=== PATIENT | male | born 1950 | race Caucasian/White ===

== ENCOUNTER → 2017-12-07 | Outpatient (CLI) | payer MEDICARE, OTHER ==
[2017-12-07 08:56] LABS: Basophils # (A) 0.1 k/uL (0-0.2); Basophils % (A) 1 %; Eosinophils # (A) 0.3 k/uL (0-0.7); Eosinophils % (A) 6 %; HCT 40.1 % (39.0-53.0); HGB 12.6 gm/dL (13.0-17.5); Lymphocytes # (A) 2.1 k/uL (1.0-4.8); Lymphocytes % (A) 39 %; MCH 29.2 pg (25.0-35.0); MCHC 31.5 g/dL (31.0-37.0); MCV 92.6 fL (80.0-100.0); Mean Platelet Volume 7.5; Monocytes # (A) 0.3 k/uL (0-1.0); Monocytes % (A) 5 %; Neutrophils # (A) 2.4 k/uL (1.3-7.7); Neutrophils % (A) 46 %; Platelet Count 181 k/uL (150-450); RBC 4.33 m/uL (4.30-5.90); RDW 12.8 % (11.5-15.5); WBC 5.3 k/uL (3.8-10.6)
[2017-12-07 08:57] LABS: Albumin 3.8 g/dL (3.5-5.0); Calcium 8.7 mg/dL (8.4-10.2); Potassium 4.6 mmol/L (3.5-5.1); Total Bilirubin 0.9 mg/dL (0.2-1.3); Total Protein 6.8 g/dL (6.3-8.2)
[2017-12-07 09:10] LABS: T4, Free (Free Thyroxine) 0.73 ng/dL (0.78-2.19)
[2017-12-07 19:44] LABS: Hemoglobin A1C 5.5 % (4.0-6.0)
== END | disposition home or self-care (01) ==
LOC: LABWHC1 08:04
PROVIDERS: ATTEND Family Medicine
DX: Z00.00 Encounter for general adult medical examination without abnormal findings (principal); I10 Essential (primary) hypertension; E55.9 Vitamin D deficiency, unspecified
CPT/HCPCS: 36415; 80053; 80061; 82306; 83036; 84439; 84443; 85025

== ENCOUNTER 2018-01-18 06:53 | Day surgery (SDC) | payer MEDICARE, OTHER ==
[2018-01-13 10:53] VITALS: BMI 23.7
[~2018-01-18 06:53] MED LIST: LACTATED RINGERS 1,000 ML IV SCH
[2018-01-18 07:13] VITALS: TEMP 97.6
[2018-01-18] MEDS ORDERED: PROPOFOL 10 MG/ML 20 ML VIAL IV ONE (07:56)
[2018-01-18] MEDS ORDERED: LIDOCAINE 1% INJ 10MG/ML (20 ML MDV) ONE (07:56)
[2018-01-18] MEDS ORDERED: GLUCAGON 1 MG/ML VIAL ONE (07:56)
--- NOTE | 2018-01-18 07:57 | P.GSHP ---
History of Present Illness H&P Date: 01/18/18 Chief Complaint: Screen colonoscopy This is a 59-year-old male presents today for screening colonoscopy. Patient denies a significant GI complaints. Past Medical History Past Medical History: Asthma, Cancer, Hypertension Additional Past Medical History / Comment(s): HX SKIN CA History of Any Multi-Drug Resistant Organisms: None Reported Past Surgical History: Orthopedic Surgery, Tonsillectomy Additional Past Surgical History / Comment(s): SKIN CA REMOVED, Past Anesthesia/Blood Transfusion Reactions: No Reported Reaction Smoking Status: Never smoker - Past Family History Mother Family Medical History: No Reported History Medications and Allergies Home Medications Medication Instructions Recorded Confirmed Type Nebivolol HCl [Bystolic] 10 mg PO DAILY 03/18/15 01/18/18 History Aspirin [Adult Low Dose Aspirin EC] 81 mg PO DAILY 01/13/18 01/13/18 History Fluticasone/Vilanterol [Breo 1 dose INHALATION DAILY PRN 01/13/18 01/18/18 History Ellipta 100-25 Mcg Inhaler] Multivitamins, Thera [Multivitamin 1 tab PO DAILY 01/13/18 01/13/18 History (formulary)] amLODIPine [Norvasc] 5 mg PO DAILY 01/13/18 01/18/18 History Allergies Allergy/AdvReac Type Severity Reaction Status Date / Time No Known Allergies Allergy Verified 01/13/18 10:48 Surgical - Exam Vital Signs Temp Pulse Resp BP Pulse Ox 97.6 F 56 L 16 149/94 96 01/18/18 07:12 01/18/18 07:12 01/18/18 07:12 01/18/18 07:12 01/18/18 07:12 - General well developed, no distress - Eyes PERRL - ENT normal pinna - Neck no masses - Respiratory normal expansion - Cardiovascular Rhythm: regular - Abdomen Abdomen: soft, non tender Assessment and Plan Assessment: We'll perform screening colonoscopy.
--- NOTE | 2018-01-18 08:25 | P.OP ---
Date of Procedure: 01/18/18 Preoperative Diagnosis: Screening colonoscopy Postoperative Diagnosis: Normal colon Procedure(s) Performed: Colonoscopy Anesthesia: MAC Surgeon: Osmani Valentine Pathology: none sent Condition: stable Disposition: PACU Description of Procedure: PROCEDURE: The patient was placed on the endoscopy table in the lateral position. Digital rectal examination was performed which revealed no abnormalities. The prostate was symmetrical without nodules. Flexible colonoscope was then placed in the patient's anus and passed throughout the entire colon. The ileocecal valve was visualized. The cecum, ascending, transverse, descending and sigmoid colon were normal. The rectum was normal as well. There were no masses, polyps or diverticula noted in the entire colon. SUMMARY OF FINDINGS: Normal colonoscopy.
[2018-01-18 08:43] VITALS: BP 104/74; PULSE 62; RESP 16
== END 2018-01-18 09:00 | disposition home or self-care (01) ==
LOC: ORWHC2ENDO 06:53
PROVIDERS: ATTEND Surgery
DX: Z12.11 Encounter for screening for malignant neoplasm of colon (principal); I10 Essential (primary) hypertension; J45.909 Unspecified asthma, uncomplicated; Z79.82 Long term (current) use of aspirin; Z85.828 Personal history of other malignant neoplasm of skin; Z79.899 Other long term (current) drug therapy
CPT/HCPCS: J1610; J2001; J2704; G0121

== ENCOUNTER 2019-11-17 07:25 | Emergency (ER) | payer MEDICARE, OTHER ==
[2019-11-17 07:37] VITALS: TEMP 98.1
[2019-11-17] MEDS ORDERED: KETOROLAC 15 MG/ML 1 ML VIAL IM STA (07:55)
[2019-11-17 08:36] LABS: Appearance,Urine Clear (Clear); Bilirubin,Urine Negative (Negative); Blood,Urine Negative (Negative); Color,Urine Yellow; Glucose,Urine (UA) Negative (Negative); Ketones,Urine Negative (Negative); Leukocyte Esterase,Urine Negative (Negative); Nitrite,Urine Negative (Negative); Protein,Urine Negative (Negative); Specific Gravity,Urine 1.016 (1.001-1.035); Urobilinogen,Urine <2.0 mg/dL (<2.0)
--- NOTE | 2019-11-17 08:45 | XR ---
EXAMINATION TYPE: PA chest and left rib series DATE OF EXAM: 11/17/2019 Comparison: Chest 10/10/2011 Clinical History: fall, pain TECHNIQUE: 5 views Findings: Heart upper limits of normal in size. Mild tortuosity of the thoracic aorta. Some strandy atelectasis in the right mid lung and left base. No consolidation or pleural effusion. No pneumothorax. No displaced left rib fracture seen. Impression: No acute cardiopulmonary process. No displaced left rib fracture seen.
--- NOTE | 2019-11-17 08:47 | ED ---
Back Pain HPI - General Chief Complaint: Back Pain/Injury Stated Complaint: back pain Time Seen by Provider: 11/17/19 07:40 Source: patient Limitations: no limitations - History of Present Illness Initial Comments: Patient is a 68-year-old male presenting to emergency Department with complaints of left-sided thoracic pain after he fell yesterday. Patient states he was on a porch swing when the chain broke and the swing fell down and he fell backwards. Patient states he did scratch his head but did not hit his head hard. He denies any headache. He denies being on blood thinners. There was no loss of consciousness. Patient's main complaint is left-sided thoracic pain. He believes the left side of his back hit either the armrest of the back of the swing when it fell. He is concerned that he fractured something. He does have sharp pains with certain movements. He had a hard time sleeping last night secondary to the pain. He states he did try an aspirin with no relief as well as an old [place]. Patient states he thinks he had about an hour of relief from that pain medicine. She denies any numbness and tingling into his lower extremities, he denies any bowel or bladder incontinence. He denies any saddle paresthesias. He denies any hematuria. He has no further complaints at this time. Upon arrival to the ER, his vital signs are stable. - Related Data Home Medications Medication Instructions Recorded Confirmed Nebivolol HCl [Bystolic] 10 mg PO DAILY 03/18/15 01/18/18 Aspirin [Adult Low Dose Aspirin EC] 81 mg PO DAILY 01/13/18 01/13/18 Fluticasone/Vilanterol [Breo 1 dose INHALATION DAILY PRN 01/13/18 01/18/18 Ellipta 100-25 Mcg Inhaler] Multivitamins, Thera [Multivitamin 1 tab PO DAILY 01/13/18 01/13/18 (formulary)] amLODIPine [Norvasc] 5 mg PO DAILY 01/13/18 01/18/18 Allergies Allergy/AdvReac Type Severity Reaction Status Date / Time No Known Allergies Allergy Verified 11/17/19 07:37 Review of Systems ROS Statement: Those systems with pertinent positive or pertinent negative responses have been documented in the HPI. ROS Other: All systems not noted in ROS Statement are negative. Past Medical History Past Medical History: Asthma, Cancer, Hypertension Additional Past Medical History / Comment(s): HX SKIN CA History of Any Multi-Drug Resistant Organisms: None Reported Past Surgical History: Orthopedic Surgery, Tonsillectomy Additional Past Surgical History / Comment(s): SKIN CA REMOVED, Past Anesthesia/Blood Transfusion Reactions: No Reported Reaction Past Psychological History: No Psychological Hx Reported Smoking Status: Never smoker Past Alcohol Use History: Occasional Past Drug Use History: None Reported - Past Family History Mother Family Medical History: No Reported History General Exam - General Exam Comments Initial Comments: GENERAL: Patient is well-developed and well-nourished. Patient is nontoxic and in no acute distress. HEAD: Atraumatic, normocephalic. EYES: Pupils equal round and reactive to light, extraocular movements intact, sclera anicteric, conjunctiva are normal. Eyelids were unremarkable. ENT: TMs normal, nares patent, oropharynx clear without exudates. Moist mucous membranes. NECK: Normal range of motion, supple without lymphadenopathy or JVD. LUNGS: Unlabored respirations. Breath sounds clear to auscultation bilaterally and equal. No wheezes rales or rhonchi. HEART: Regular rate and rhythm without murmurs, rubs or gallops. ABDOMEN: Soft, nontender, normoactive bowel sounds. No guarding, no rebound. No masses appreciated. : Deferred MUSCULOSKELETAL: Normal extremities with adequate strength and normal range of motion, no pitting or edema. No clubbing or cyanosis. Pain with palpation of the left thoracic area, there is a mild bruise present in this area. No pain in the lumbar area. NEUROLOGICAL: Patient is alert and oriented x 3. Motor and sensory are also intact. Cranial nerves II through XII grossly intact. Symmetrical smile. Normal speech, normal gait. PSYCH: Normal mood, normal affect. SKIN: Warm, Dry, normal turgor, no rashes or lesions noted. Limitations: no limitations Course Vital Signs 11/17/19 11/17/19 07:34 09:09 Temperature 98.1 F Pulse Rate 56 L 55 L Respiratory 18 14 Rate Blood Pressure 149/99 138/87 O2 Sat by Pulse 97 98 Oximetry Medical Decision Making - Medical Decision Making Patient is a 68-year-old male here after falling down on a porch swing, presenting with left-sided thoracic pain. Vitals are stable. He has no red flag symptoms, no neuro deficits. He has pain with palpation on the left thoracic area, into the left side of the ribs. Urine shows no evidence of hematuria, is normal. X-rays of the thoracic spine and left ribs show no acute fractures. Patient was given Toradol the ER. He is resting completely. I discussed with patient this is most likely a contusion. I recommended heat and/or ice to the area may alternate between the two. I also recommended ibuprofen 600 for discomfort. Patient's states she has this at home. He is stable for discharge. He will follow up with PCP. Return parameters were discussed with the patient and he verbalized understanding. Case discussed with Dr. Jimenez. - Lab Data Lab Results 11/17/19 Range/Units 08:04 Urine Color Yellow Urine Appearance Clear (Clear) Urine pH 6.0 (5.0-8.0) Ur Specific [place] 1.016 (1.001-1.035) Urine Protein Negative (Negative) Urine Glucose (UA) Negative (Negative) Urine Ketones Negative (Negative) Urine Blood Negative (Negative) Urine Nitrite Negative (Negative) Urine Bilirubin Negative (Negative) Urine Urobilinogen <2.0 (<2.0) mg/dL Ur Leukocyte Esterase Negative (Negative) Disposition Clinical Impression: Contusion of rib on left side, Thoracic back pain Disposition: HOME SELF-CARE Condition: Stable Instructions (If sedation given, give patient instructions): Rib Contusion (ED) Additional Instructions: Please return to the Emergency Department if symptoms worsen or any other concerns. Recommend heat and/or ice to the area, may alternate between the two. Recommend ibuprofen for discomfort. Follow-up with PCP if symptoms persist. Is patient prescribed a controlled substance at d/c from ED?: No Referrals: Adryan Gardiner DO [Primary Care Provider] - 1-2 days
--- NOTE | 2019-11-17 08:47 | XR ---
EXAMINATION TYPE: XR thoracic spine 2V DATE OF EXAM: 11/17/2019 COMPARISON: NONE HISTORY: 68-year-old male fall and pain TECHNIQUE: 3 views FINDINGS: There is a rightward truncal shift. 12 rib-bearing thoracic vertebral bodies. All pedicles are visual ized. Moderate endplate spondylosis mid to lower thoracic spine. Vertebral body heights are preserved and alignment is maintained. IMPRESSION: 1. Rightward truncal shift could be positional or due to muscle spasm. 2. Moderate endplate spondylosis mid to lower thoracic spine. No vertebral compression collapse or ma lalignment seen.
[2019-11-17 09:12] VITALS: BP 138/87; PULSE 55; RESP 14
== END 2019-11-17 09:12 | disposition home or self-care (01) ==
LOC: EC 07:25
DX: S20.212A Contusion of left front wall of thorax, initial encounter (principal); M54.6 Pain in thoracic spine; J45.909 Unspecified asthma, uncomplicated; I10 Essential (primary) hypertension; Z79.51 Long term (current) use of inhaled steroids; Z79.899 Other long term (current) drug therapy; Z98.890 Other specified postprocedural states; Z85.828 Personal history of other malignant neoplasm of skin; W09.1XXA Fall from playground swing, initial encounter
CPT/HCPCS: 81003; 71101; 72070; 96372; 99283; J1885

== ENCOUNTER 2021-06-08 09:28 | Emergency (ER) | payer MEDICARE, OTHER ==
[2021-06-08 09:32] VITALS: BP 153/93; PULSE 68; RESP 20; TEMP 97.7
--- NOTE | 2021-06-08 09:43 | ED ---
General Adult HPI - General Chief complaint: ENT Stated complaint: skin/nose problem Time Seen by Provider: 06/08/21 09:32 Source: patient, RN notes reviewed Mode of arrival: ambulatory Limitations: no limitations - History of Present Illness Initial comments: This a 70-year-old male presents emergency Department chief complaint of a rash, redness and swelling to his nose. Patient states his started Wednesday with a small area has greatly worsened. Patient denies any fevers or chills no difficulty breathing states her some swelling underneath his eyes. Patient denies any known trauma denies any new products or putting anything in his nose. Patient states that he has had priorsurgery for skin cancer. Patient denies fevers or chills. - Related Data Home Medications Medication Instructions Recorded Confirmed Nebivolol HCl [Bystolic] 10 mg PO DAILY 03/18/15 01/18/18 Aspirin [Adult Low Dose Aspirin EC] 81 mg PO DAILY 01/13/18 01/13/18 Fluticasone/Vilanterol [Breo 1 dose INHALATION DAILY PRN 01/13/18 01/18/18 Ellipta 100-25 Mcg Inhaler] Multivitamins, Thera [Multivitamin 1 tab PO DAILY 01/13/18 01/13/18 (formulary)] amLODIPine [Norvasc] 5 mg PO DAILY 01/13/18 01/18/18 Previous Rx's Medication Instructions Recorded Cephalexin [Keflex] 500 mg PO Q6HR #40 cap 06/08/21 Allergies Allergy/AdvReac Type Severity Reaction Status Date / Time No Known Allergies Allergy Verified 06/08/21 09:32 Review of Systems ROS Statement: Those systems with pertinent positive or pertinent negative responses have been documented in the HPI. ROS Other: All systems not noted in ROS Statement are negative. Past Medical History Past Medical History: Asthma, Cancer, Hypertension Additional Past Medical History / Comment(s): HX SKIN CA History of Any Multi-Drug Resistant Organisms: None Reported Past Surgical History: Orthopedic Surgery, Tonsillectomy Additional Past Surgical History / Comment(s): SKIN CA REMOVED, Past Anesthesia/Blood Transfusion Reactions: No Reported Reaction Past Psychological History: No Psychological Hx Reported Smoking Status: Never smoker Past Alcohol Use History: Occasional Past Drug Use History: None Reported - Past Family History Mother Family Medical History: No Reported History General Exam Limitations: no limitations General appearance: alert, in no apparent distress Head exam: Present: atraumatic, normocephalic, normal inspection Eye exam: Present: normal appearance, PERRL, EOMI, periorbital swelling (Mild right inferior), other (No pain with ocular movement). Absent: scleral icterus, conjunctival injection, periorbital tenderness ENT exam: Present: normal oropharynx, mucous membranes moist, TM's normal bilaterally, normal external ear exam, other (Erythema and swelling of the nose, mild swelling right periorbital) Neck exam: Present: normal inspection, full ROM. Absent: tenderness, meningismus, lymphadenopathy Respiratory exam: Present: normal lung sounds bilaterally. Absent: respiratory distress, wheezes, rales, rhonchi, stridor Cardiovascular Exam: Present: regular rate, normal rhythm, normal heart sounds. Absent: systolic murmur, diastolic murmur, rubs, gallop, clicks Course Vital Signs 06/08/21 09:29 Temperature 97.7 F Pulse Rate 68 Respiratory 20 Rate Blood Pressure 153/93 O2 Sat by Pulse 97 Oximetry Medical Decision Making - Medical Decision Making Patient appears to have cellulitis of his nose, facial region. This was on alleviated with Benadryl and less likely to be ALLERGIC. Patient we discharged on oral antibiotics with close follow-up, return parameters were discussed Disposition Clinical Impression: Cellulitis of nose Disposition: HOME SELF-CARE Condition: Stable Instructions (If sedation given, give patient instructions): Cellulitis (ED) Additional Instructions: Please return to the Emergency Department if symptoms worsen or any other concerns. Prescriptions: Cephalexin [Keflex] 500 mg PO Q6HR #40 cap Is patient prescribed a controlled substance at d/c from ED?: No Referrals: Adryan Gardiner DO [Primary Care Provider] - 1-2 days Time of Disposition: 09:42
== END 2021-06-08 09:44 | disposition home or self-care (01) ==
LOC: EC 09:28
DX: J34.0 Abscess, furuncle and carbuncle of nose (principal); J45.909 Unspecified asthma, uncomplicated; I10 Essential (primary) hypertension; Z79.82 Long term (current) use of aspirin; Z85.828 Personal history of other malignant neoplasm of skin
CPT/HCPCS: 99282

== ENCOUNTER → 2022-08-17 | Outpatient (CLI) | payer MEDICARE, OTHER ==
[2022-08-17 11:03] LABS: African American GFR (CKD) 63.2 (60.0-200.0); Anion Gap 7.7 mmol/L (10.00-18.00); Carbon Dioxide 28.3 mmol/L (20.0-27.5); Non-African American GFR(CKD) 54.5 (60.0-200.0); Potassium 4.2 mmol/L (3.5-5.5)
[2022-08-17 11:22] LABS: HCT 42.3 % (39.6-50.0); HGB 13.7 g/dL (13.0-17.0); MCH 29.7 pg (27.0-32.0); MCHC 32.4 g/dL (32.0-37.0); MCV 91.6 fL (80.0-97.0); Mean Platelet Volume 10.7 fL (9.5-12.2); NRBC Per 100 WBC 0 /100 WBCS (0.0-0.0); Platelet Count 182 X 10*3/uL (140-440); RBC 4.62 X 10*6/uL (4.40-5.60); RDW 12.9 % (11.5-14.5); WBC 6.95 X 10*3/uL (4.50-10.00)
== END | disposition home or self-care (01) ==
LOC: LABPAT 07:09
PROVIDERS: ATTEND Internal Medicine Interventional Cardiology
DX: Z01.812 Encounter for preprocedural laboratory examination (principal); R94.39 Abnormal result of other cardiovascular function study
CPT/HCPCS: 80051; 82565; 84520; 85027

== ENCOUNTER 2022-08-20 06:56 | Day surgery (SDC) | payer MEDICARE, OTHER ==
[2022-08-17 15:33] VITALS: BMI 23.1
[~2022-08-20 06:56] MED LIST changes: +ALPRAZolam 0.25 MG TAB PO PRN; +ALPRAZolam 0.5 MG TAB PO PRN; +ASPIRIN 325 MG TAB PO STA; +ATORVASTATIN 80 MG TAB PO STA; -LACTATED RINGERS 1,000 ML IV SCH; +NITROGLYCERIN SL TABS 0.4 MG TAB SUBLINGUAL PRN; +SODIUM CHLORIDE 0.9% 1,000 ML in EMPTY BAG 1 BAG IV ONE
[2022-08-20] MEDS ORDERED: HEPARIN SODIUM,PORCINE 10,000 UNIT in SODIUM CHLORIDE 0.9% 1,000 ML IRRIGATION PRN (07:00)
[2022-08-20] MEDS ORDERED: HEPARIN SODIUM,PORCINE 2,500 UNIT in SODIUM CHLORIDE 0.9% 250 ML IRRIGATION PRN (07:00)
[2022-08-20] MEDS ORDERED: SODIUM CHLORIDE 0.9% 1,000 ML IV ONE (07:04)
[2022-08-20 07:22] VITALS: RESP 16; TEMP 96.9
[2022-08-20] MEDS ORDERED: VERAPAMIL 2.5 MG/ML 2 ML AMP ONE (08:46)
[2022-08-20] MEDS ORDERED: HEPARIN SODIUM 1,000 UN/ML (10ML VL) ONE (08:46)
[2022-08-20] MEDS ORDERED: MIDAZOLAM 2 MG/2 ML VIAL IV ONE (09:09)
[2022-08-20] MEDS ORDERED: LIDOCAINE 1% INJ 10MG/ML (5 ML VIAL-PF) SQ ONE (09:09)
[2022-08-20] MEDS: HEPARIN SODIUM 1,000 UN/ML (10ML VL) IV ONE ×2 (09:15→09:27)
[2022-08-20] MEDS ORDERED: VERAPAMIL SYRINGE (5 MG/10 ML) INTRAARTER ONE (09:16)
[2022-08-20] MEDS ORDERED: HYDROmorphone 0.5 MG/0.5 ML SYRINGE IVP ONE (09:35)
[2022-08-20] MEDS ORDERED: CLOPIDOGREL 75 MG TAB ONE (09:42)
[2022-08-20] MEDS ORDERED: IOPAMIDOL-370 100ML BTL INJ ONE (09:42)
[2022-08-20] MEDS ORDERED: CLOPIDOGREL 75 MG TAB PO ONE (09:45)
[2022-08-20] MEDS ORDERED: IOPAMIDOL-300 100ML BTL INJ ONE (09:47)
[2022-08-20] MEDS ORDERED: NITROGLYCERIN 1000MCG/10ML SYRINGE INTRACORON ONE (09:48)
[2022-08-20 15:22] VITALS: BP 131/76; PULSE 56
--- NOTE | 2022-08-20 15:32 | CC ---
CARDIAC CATHETERIZATION REPORT DATE OF SERVICE: 08/20/2022. PROCEDURES PERFORMED: 1. Left heart catheterization and coronary angiography. 2. Percutaneous transluminal coronary angioplasty and stenting of ramus intermedius with a drug-eluting stent. PERFORMED BY: Dr. Luis Wong. ANESTHESIA: Moderate conscious sedation time was 40 minutes. The patient was administered Versed. Oxygen saturation, hemodynamics, and EKG were monitored closely. CLINICAL INFORMATION: Mr. Carlos Cornejo is a 71-year-old gentleman with a history of paroxysmal atrial fibrillation with a loop recorder, also has a history of syncope, had a recent stress test which revealed an exertional decrease in ejection fraction with a reversibility in the lateral wall. He was advised cardiac catheterization given the abnormality. Risks, benefits, options, and rationale were explained to the patient and . PROCEDURE NOTE: Under local anesthesia and strict aseptic precautions, a 6-[place] introducer was placed in the right radial artery. Using JL3.5 and JR4 catheters, I performed coronary angiography and also checked LV pressures but did not perform an LV-gram. I noted that there was a significant 80% to 90% lesion involving the ramus intermedius, and I proceeded to perform intervention in the same setting. Following the PCI procedure, the sheath was taken out, and Vasc Band was applied as per protocol. Saturation in the fingers of the right hand was 96%. The patient received a total of 7000 units of heparin, and his ACT was 273. He also received 600 mg of Plavix, and he will be on a combination of Eliquis and Plavix without interruption for 1 year. CARDIAC CATHETERIZATION FINDINGS: The left ventricular end-diastolic pressure was about 12 mmHg without any gradient across aortic valve. CORONARY ANGIOGRAPHY FINDINGS: RIGHT CORONARY ARTERY: Dominant vessel. No significant disease. Has about a 30% mid lesion. Bifurcates into large PDA and PLV, both of which supply a sizable amount of myocardium. This is a superdominant RCA. No significant disease other than 35% mid lesion. LEFT MAIN CORONARY ARTERY: Short, patent vessel, free of significant disease that trifurcates into LAD, ramus, and circumflex. Left main itself is free of significant disease. LEFT ANTERIOR DESCENDING CORONARY ARTERY: Good-caliber vessel, gives off a good-sized diagonal branch that subdivides into smaller septal branches, runs all the way to the apex, has minor irregularities of no more than 35%. There is mild diffuse calcification in the LAD, but no more than 35% narrowing. Diagonal also has minor irregularities, no significant disease. RAMUS INTERMEDIUS: This is a good-caliber vessel. In the midportion, there is an eccentric 80% to 90% stenosis, after which, the caliber improves, and vessel runs all the way towards the apex or apical lateral wall supplying a sizable amount of myocardium. Fair-caliber vessel, 80% to 90% mid lesion which is quite significant in multiple views. LEFT POSTERIOR CIRCUMFLEX CORONARY ARTERY: Small nondominant vessel, runs in the AV groove, gives off a posterolateral branch and a small left atrial circumflex branch. Has minor irregularities. No significant disease. FINAL IMPRESSION: This patient has a right-dominant system with a 35% mid right coronary artery disease, superdominant right coronary artery. Normal filling pressures. No gradient. Left main, circumflex, and left anterior descending have minor irregularities. Ramus has an 85% to 90% lesion in the midportion. Left ventriculogram was not performed. RECOMMENDATIONS: I recommended PCI of ramus and performed this in the same setting. PCI PROCEDURE DETAILS: I used a 3.5 left Romeo-type guide catheter of 6-[place] caliber to cannulate the left coronary artery. A Runthrough wire was used to cross the lesion in the ramus. A 2.25 caliber 15 mm NC Trek balloon was used to pre-dilate the lesion. I then deployed an 18 mm long 2.5-caliber Xience stent. Excellent angiographic result was achieved. Angiographically, the expansion was excellent. The patient had very mild chest discomfort. No new EKG changes. Excellent angiographic result without complication was achieved. The final angiograms were reviewed. The sheath was taken out, and Vasc Band was applied as per protocol with saturation in the fingers of the right hand of about 96%. The patient tolerated the procedure well without complications. Excellent angiographic result was achieved. I expect he will be discharged later on today and will follow up with me next week. MMODL / IJN: [id number] /
== END 2022-08-20 17:14 | disposition home or self-care (01) ==
LOC: CATHCVL 06:56
PROVIDERS: ATTEND Internal Medicine Interventional Cardiology
DX: I48.0 Paroxysmal atrial fibrillation (principal); I10 Essential (primary) hypertension; Z79.01 Long term (current) use of anticoagulants; Z79.899 Other long term (current) drug therapy
CPT/HCPCS: 93458; C9600; C1887; C1769 ×2; C1894; C1874; C1725; J2250; J2001; J1644; J1170; Q9967 ×2

== ENCOUNTER → 2022-10-07 | Outpatient (CLI) | payer MEDICARE, OTHER ==
[2022-10-07 15:35] LABS: Basophils # (A) 0.08 X 10*3/uL (0.00-0.10); Basophils % (A) 1.5 %; Eosinophils % (A) 5.5 %; HCT 36.2 % (39.6-50.0); HGB 11.5 d/dL (12.0-15.0); Lymphocytes # (A) 2.11 X 10*3/uL (0.90-5.00); Lymphocytes % (A) 38.5 %; MCH 29.8 pg (27.0-32.0); MCHC 31.8 d/dL (32.0-37.0); MCV 93.8 FL (80.0-97.0); Mean Platelet Volume 11.1 FL (9.5-12.2); Monocytes # (A) 0.46 X 10*3/uL (0.20-1.00); Monocytes % (A) 8.4 %; NRBC Per 100 WBC 0 X 10*3/uL (0.00-0.01); Neutrophils # (A) 2.52 X 10*3/uL (1.80-7.70); Neutrophils % (A) 45.9 %; Platelet Count 169 X 10*3/uL (140-440); RBC 3.86 X 10*6/uL (4.40-5.60); RDW 13.4 % (11.5-14.5); WBC 5.48 X 10*3/uL (4.50-10.00)
[2022-10-07 16:24] LABS: ALT 120 U/L (10-49); AST 81 U/L (14-35); Albumin 4.2 d/dL (3.8-4.9); Albumin/Globulin Ratio 1.91 Ratio (1.60-3.17); Alkaline Phosphatase 87 U/L (41-126); Blood Urea Nitrogen 12.6 mg/dL (9.0-27.0); Calcium 8.8 mg/dL (8.7-10.3); Carbon Dioxide 25.3 mmol/L (21.6-31.8); Chloride 109 mmol/L (96-109); Chol/HDL Ratio 1.56 Ratio; Globulin 2.2 d/dL (1.6-3.3); Glucose 100 mg/dL (70-110); LDL Cholesterol,Calculated 17.4 mg/dL (0.0-131.0); Potassium 4.3 mmol/L (3.5-5.5); Sodium 145 mmol/L (135-145); T4, Free (Free Thyroxine) 1.21 ng/dL (0.80-1.80); Total Bilirubin 1.8 mg/dL (0.3-1.2); Total Protein 6.4 d/dL (6.2-8.2); VLDL Calculation 13.72 mg/dL (5.00-40.00)
== END | disposition home or self-care (01) ==
LOC: LABWHC1 09:36
PROVIDERS: ATTEND Family Medicine
DX: Z00.00 Encounter for general adult medical examination without abnormal findings (principal); Z12.5 Encounter for screening for malignant neoplasm of prostate; I10 Essential (primary) hypertension; E03.9 Hypothyroidism, unspecified; E55.9 Vitamin D deficiency, unspecified
CPT/HCPCS: 36415; 80053; 80061; 82306; 83036; 84153; 84439; 84443; 85025

== ENCOUNTER 2023-10-24 00:18 | Inpatient (IN) | payer MEDICARE, OTHER ==
--- NOTE | 2023-10-24 00:32 | ED ---
Fever HPI - General Stated Complaint: NV Time Seen by Provider: 10/24/23 00:30 Source: RN notes reviewed, old records reviewed, Caregiver Mode of arrival: EMS Limitations: no limitations - History of Present Illness Initial Comments: This is a 72-year-old male with near syncopal event found to have fever of recent long trip. Patient did recently go on a long travel, concerned that he is to too much of himself is doing too much activity taking care of himself not drinking eating well patient does have fever MD Complaint: fever, malaise, weakness -: days(s) Temperature Source: subjective Context: sick contacts, multiple patients with similar symptoms Associated Symptoms: chills, myalgias Treatments Prior to Arrival: none - Related Data Home Medications Medication Instructions Recorded Confirmed Vitamin B Complex 1 cap PO DAILY 05/12/22 10/24/23 Cholecalciferol [Vitamin D3 (25 25 mcg PO DAILY 08/17/22 10/24/23 Mcg = 1000 Iu)] Clopidogrel [Plavix] 75 mg PO DAILY 08/20/22 10/24/23 Ascorbic Acid [Vitamin C] 500 mg PO DAILY 10/24/23 10/24/23 Atorvastatin [Lipitor] 40 mg PO HS 10/24/23 10/24/23 Calcium/Magnesium/Zinc 1 tab PO DAILY 10/24/23 10/24/23 Levothyroxine Sodium [Synthroid] 50 mcg PO AC-BRKFST 10/24/23 10/24/23 Multivit-Mins/Iron/Folic/Lycop 1 tab PO DAILY 10/24/23 10/24/23 [Centrum Men's Tablet] Pantoprazole [Protonix] 40 mg PO DAILY 10/24/23 10/24/23 Sildenafil Citrate 100 mg PO Q72H PRN 10/24/23 10/24/23 Previous Rx's Medication Instructions Recorded Apixaban [Eliquis] 5 mg PO BID #60 tab 05/14/22 Acetaminophen Tab [Tylenol] 650 mg PO Q6HR PRN tab 10/26/23 cefUROXime axetiL [Ceftin] 500 mg PO BID 10 Days #20 tab 10/26/23 Allergies Allergy/AdvReac Type Severity Reaction Status Date / Time No Known Allergies Allergy Verified 10/24/23 08:59 Review of Systems ROS Statement: Those systems with pertinent positive or pertinent negative responses have been documented in the HPI. ROS Other: All systems not noted in ROS Statement are negative. Past Medical History Past Medical History: Asthma, Cancer, Hypertension Additional Past Medical History / Comment(s): HX SKIN CA History of Any Multi-Drug Resistant Organisms: None Reported Past Surgical History: Orthopedic Surgery, Tonsillectomy Additional Past Surgical History / Comment(s): SKIN CA REMOVED, Past Anesthesia/Blood Transfusion Reactions: No Reported Reaction Smoking Status: Never smoker - Past Family History Mother Family Medical History: No Reported History General Exam General appearance: alert, in no apparent distress Head exam: Present: atraumatic, normocephalic, normal inspection Eye exam: Present: normal appearance, PERRL, EOMI. Absent: scleral icterus, conjunctival injection, periorbital swelling ENT exam: Present: normal exam, mucous membranes moist Neck exam: Present: normal inspection. Absent: tenderness, meningismus, lymph adenopathy Respiratory exam: Present: normal lung sounds bilaterally. Absent: respiratory distress, wheezes, rales, rhonchi, stridor Cardiovascular Exam: Present: regular rate, normal rhythm, normal heart sounds. Absent: systolic murmur, diastolic murmur, rubs, gallop, clicks GI/Abdominal exam: Present: soft, normal bowel sounds. Absent: distended, tenderness, guarding, rebound, rigid Extremities exam: Present: normal inspection, full ROM, normal capillary refill. Absent: tenderness, pedal edema, joint swelling, calf tenderness Back exam: Present: normal inspection Neurological exam: Present: alert, oriented X3, CN II-XII intact Psychiatric exam: Present: normal affect, normal mood Skin exam: Present: warm, dry, intact, normal color. Absent: rash Course Vital Signs 10/24/23 10/24/23 10/24/23 00:26 02:03 03:41 Temperature 101.7 F H 98.4 F Pulse Rate 91 90 80 Respiratory 20 18 20 Rate Blood Pressure 132/77 125/80 96/68 O2 Sat by Pulse 94 L 93 L 95 Oximetry 10/24/23 10/24/23 10/24/23 04:37 05:54 06:57 Temperature 97.5 F L Pulse Rate 72 65 121 H Respiratory 18 20 16 Rate Blood Pressure 97/69 98/71 83/57 O2 Sat by Pulse 94 L 94 L 95 Oximetry 10/24/23 10/24/23 10/24/23 07:00 07:15 07:30 Temperature Pulse Rate 99 122 H 85 Respiratory 18 22 18 Rate Blood Pressure 85/61 77/52 78/60 O2 Sat by Pulse 94 L 94 L 98 Oximetry 10/24/23 10/24/23 10/24/23 08:00 08:30 09:00 Temperature Pulse Rate 82 116 H 87 Respiratory 18 18 18 Rate Blood Pressure 81/65 94/71 101/84 O2 Sat by Pulse 99 98 96 Oximetry 10/24/23 10/24/23 10/24/23 09:30 10:00 10:30 Temperature Pulse Rate 57 L 55 L Respiratory 18 18 17 Rate Blood Pressure 96/76 104/82 76/53 O2 Sat by Pulse 96 98 99 Oximetry 10/24/23 10/24/23 10/24/23 11:00 11:30 11:36 Temperature Pulse Rate 61 55 L 56 L Respiratory 19 19 18 Rate Blood Pressure 80/54 79/52 74/54 O2 Sat by Pulse 96 100 98 Oximetry 10/24/23 10/24/23 10/24/23 11:47 12:00 12:09 Temperature Pulse Rate 59 L 60 59 L Respiratory 18 17 18 Rate Blood Pressure 93/72 93/72 103/75 O2 Sat by Pulse 98 98 98 Oximetry 10/24/23 10/24/23 12:27 13:00 Temperature Pulse Rate 56 L 59 L Respiratory 18 18 Rate Blood Pressure 101/78 96/62 O2 Sat by Pulse 98 98 Oximetry - Reevaluation(s) Reevaluation #1: 10/24/23 03:57 Medical records reviewed Reevaluation #2: 10/24/23 03:57 Patient symptoms improving Reevaluation #3: 10/24/23 03:57 Patient informed of results questions answered Reevaluation #4: 10/24/23 03:57 Was pt. sent in by a medical professional or institution (, PA, GERIATRIC AIDE, urgent care, hospital, or [facility]...) When possible be specific @ -no Did you speak to anyone other than the patient for history (EMS, parent, family, police, friend...)? What history was obtained from this source @ -no Did you review nursing and triage notes (agree or disagree)? Why? @ -agree Are old charts reviewed (outside hosp., previous admission, EMS record, old EKG, old radiological studies, urgent care reports/EKG's, [facility] records)? Report findings @ -yes Differential Diagnosis (chest pain, altered mental status, abdominal pain women, abdominal pain men, vaginal bleeding, weakness, fever, dyspnea, syncope, headache, dizziness, GI bleed, back pain, seizure, CVA, palpatations, mental health, musculoskeletal)? @ -prior EKG interpreted by me (3pts min.). @ -yes X-rays interpreted by me (1pt min.). @ -yes negative for acute disease CT interpreted by me (1pt min.). @ -no U/S interpreted by me (1pt. min.). @ -no What testing was considered but not performed or refused? (CT, X-rays, U/S, labs)? Why? @ -none What meds were considered but not given or refused? Why? @ -none Did you discuss the management of the patient with other professionals (professionals i.e. , PA, GERIATRIC AIDE, lab, RT, psych nurse, foster care social worker, paint line operator, teacher, aviation safety officer, window caser)? Give summary @ -no Was smoking cessation discussed for >3mins.? @ -no Was critical care preformed (if so, how long)? @ -yes31 Were there social determinants of health that impacted care today? How? (Homelessness, low income, unemployed, alcoholism, drug addiction, transportation, low edu. Level, literacy, decrease access to med. care, alf, rehab)? @ -none Was there de-escalation of care discussed even if they declined (Discuss DNR or withdrawal of care, Hospice)? DNR status @ -no What co-morbidities impacted this encounter? (DM, HTN, Smoking, COPD, CAD, Cancer, CVA, ARF, Chemo, Hep., AIDS, mental health diagnosis, sleep apnea, morbid obesity)? @ -none Was patient admitted / discharged? Hospital course, mention meds given and route, prescriptions, significant lab abnormalities, going to OR and other pertinent info. @ - 72 male for fever, patient feels well here in the ER much improved and can be discharged home patient is found to not be in atrial fibrillation with RVR soft blood pressures will start on antibiotics, patient will await blood cultures for bacteremia and patient can be given continued fluid resuscitation here in the ER Admitted Undiagnosed new problem with uncertain prognosis? @ -no Drug Therapy requiring intensive monitoring for toxicity (Heparin, Nitro, Ins ulin, Cardizem)? @ -no Were any procedures done? @ -no Diagnosis/symptom? @ -Fever A-fib with RVR Acute, or Chronic, or Acute on Chronic? @ -Acute Uncomplicated (without systemic symptoms) or Complicated (systemic symptoms)? @ -Complicated Side effects of treatment? @ -no Exacerbation, Progression, or Severe Exacerbation? @ -exacerbation Poses a threat to life or bodily function? How? (Chest pain, USA, PA, pneumonia, PE, COPD, DKA, ARF, appy, cholecystitis, CVA, Diverticulitis, Homicidal, Suicidal, threat to staff... and all critical care pts) @ -yes arrhythmia and fever Reevaluation #5: Differential Fever: Pneumonia, viral URI, endocarditis, myocarditis, pericarditis, otitis, sinusitis, peritonsillar Abscess, retropharyngeal Abscess, epiglottitis, perito nitis, appendicitis, [place] cystitis, diverticulitis, hepatitis, colitis, UTI, PID, TOA, pyelonephritis, prostatitis, epididymitis, meningitis, encephalitis, pulmonary embolism, CVA, thyroid storm, pancreatitis, adrenal crisis, cavernous sinus thrombosis, this is not meant to be an all-inclusive list. - Consultations Consultation #1: Spoke with Dr. NAIR who agrees to admit this patient Medical Decision Making - Medical Decision Making 72 male for fever, patient feels well here in the ER much improved and can be discharged home patient is found to not be in atrial fibrillation with RVR soft blood pressures will start on antibiotics, patient will await blood cultures for bacteremia and patient can be given continued fluid resuscitation here in the ER - Lab Data Result diagrams: 10/26/23 07:26 10/26/23 07:26 Lab Results 10/24/23 10/24/23 10/24/23 Range/Units 01:06 01:06 01:06 WBC 3.9 (3.8-10.6) k/uL RBC 3.69 L (4.30-5.90) m/uL Hgb 11.4 L (13.0-17.5) gm/dL Hct 33.5 L (39.0-53.0) % MCV 90.9 (80.0-100.0) fL MCH 30.8 (25.0-35.0) pg MCHC 33.9 (31.0-37.0) g/dL RDW 13.1 (11.5-15.5) % Plt Count 161 (150-450) k/uL MPV 8.3 Neutrophils % 56 % Lymphocytes % 39 % Monocytes % 2 % Eosinophils % 1 % Basophils % 0 % Neutrophils # 2.2 (1.3-7.7) k/uL Lymphocytes # 1.5 (1.0-4.8) k/uL Monocytes # 0.1 (0-1.0) k/uL Eosinophils # 0.0 (0-0.7) k/uL Basophils # 0.0 (0-0.2) k/uL Sodium 136 L (137-145) mmol/L Potassium 3.3 L (3.5-5.1) mmol/L Chloride 108 H (98-107) mmol/L Carbon Dioxide 21 L (22-30) mmol/L Anion Gap 7 mmol/L BUN 16 (9-20) mg/dL Creatinine 1.34 H (0.66-1.25) mg/dL Est GFR (CKD-EPI)AfAm 61 (>60 ml/min/1.73 sqM) Est GFR (CKD-EPI)NonAf 53 (>60 ml/min/1.73 sqM) Glucose 102 H (74-99) mg/dL Plasma Lactic Acid [place] 1.7 (0.7-2.0) mmol/L Calcium 8.2 L (8.4-10.2) mg/dL Phosphorus 1.7 L (2.5-4.5) mg/dL Magnesium 1.3 L (1.6-2.3) mg/dL Total Bilirubin 2.8 H (0.2-1.3) mg/dL AST 34 (17-59) U/L ALT 25 (4-49) U/L Alkaline Phosphatase 72 (38-126) U/L Total Protein 6.1 L (6.3-8.2) g/dL Albumin 3.6 (3.5-5.0) g/dL Lipase 60 (23-300) U/L Urine Color Urine Appearance (Clear) Urine pH (5.0-8.0) Ur Specific [place] (1.001-1.035) Urine Protein (Negative) Urine Glucose (UA) (Negative) Urine Ketones (Negative) Urine Blood (Negative) Urine Nitrite (Negative) Urine Bilirubin (Negative) Urine Urobilinogen (<2.0) mg/dL Ur Leukocyte Esterase (Negative) Urine RBC (0-5) /hpf Urine WBC (0-5) /hpf Urine WBC Clumps (None) /hpf Urine Bacteria (None) /hpf Hyaline Casts (0-2) /lpf Urine Mucus (None) /hpf Influenza Type A (PCR) (Not Detectd) Influenza Type B (PCR) (Not Detectd) RSV (PCR) (Not Detectd) SARS-CoV-2 (PCR) (Not Detectd) 10/24/23 10/24/23 Range/Units 02:00 02:44 WBC (3.8-10.6) k/uL RBC (4.30-5.90) m/uL Hgb (13.0-17.5) gm/dL Hct (39.0-53.0) % MCV (80.0-100.0) fL MCH (25.0-35.0) pg MCHC (31.0-37.0) g/dL RDW (11.5-15.5) % Plt Count (150-450) k/uL MPV Neutrophils % % Lymphocytes % % Monocytes % % Eosinophils % % Basophils % % Neutrophils # (1.3-7.7) k/uL Lymphocytes # (1.0-4.8) k/uL Monocytes # (0-1.0) k/uL Eosinophils # (0-0.7) k/uL Basophils # (0-0.2) k/uL Sodium (137-145) mmol/L Potassium (3.5-5.1) mmol/L Chloride (98-107) mmol/L Carbon Dioxide (22-30) mmol/L Anion Gap mmol/L BUN (9-20) mg/dL Creatinine (0.66-1.25) mg/dL Est GFR (CKD-EPI)AfAm (>60 ml/min/1.73 sqM) Est GFR (CKD-EPI)NonAf (>60 ml/min/1.73 sqM) Glucose (74-99) mg/dL Plasma Lactic Acid [place] (0.7-2.0) mmol/L Calcium (8.4-10.2) mg/dL Phosphorus (2.5-4.5) mg/dL Magnesium (1.6-2.3) mg/dL Total Bilirubin (0.2-1.3) mg/dL AST (17-59) U/L ALT (4-49) U/L Alkaline Phosphatase (38-126) U/L Total Protein (6.3-8.2) g/dL Albumin (3.5-5.0) g/dL Lipase (23-300) U/L Urine Color Light Yellow Urine Appearance Cloudy (Clear) Urine pH 5.5 (5.0-8.0) Ur Specific [place] 1.009 (1.001-1.035) Urine Protein Trace H (Negative) Urine Glucose (UA) Negative (Negative) Urine Ketones Negative (Negative) Urine Blood Large H (Negative) Urine Nitrite Negative (Negative) Urine Bilirubin Negative (Negative) Urine Urobilinogen <2.0 (<2.0) mg/dL Ur Leukocyte Esterase Moderate H (Negative) Urine RBC >182 H (0-5) /hpf Urine WBC 66 H (0-5) /hpf Urine WBC Clumps Rare H (None) /hpf Urine Bacteria Rare H (None) /hpf Hyaline Casts 3 H (0-2) /lpf Urine Mucus Rare H (None) /hpf Influenza Type A (PCR) Not Detected (Not Detectd) Influenza Type B (PCR) Not Detected (Not Detectd) RSV (PCR) Not Detected (Not Detectd) SARS-CoV-2 (PCR) Not Detected (Not Detectd) - EKG Data -: EKG Interpreted by Me (G is sinus 92 AK 176 QRS 161 QTc 436) Rate: tachycardia (EKG is A-fib with RVR 125 QRS 146 QTc 461) - Radiology Data Radiology results: report reviewed (CXR is negative for acute disaese), image reviewed Critical Care Time Critical Care Time: Yes Total Critical Care Time: 31 Disposition Clinical Impression: Fever, Dehydration, Gastroenteritis, Near syncope, Atrial fibrillation with rapid ventricular response Disposition: ADMITTED IP TO THIS [facility] Condition: Fair Is patient prescribed a controlled substance at d/c from ED?: No Time of Disposition: 04:00
[2023-10-24] MEDS: SODIUM CHLORIDE 0.9% 1,000 ML IV STA ×3 (02:08→06:48)
[2023-10-24] MEDS: ACETAMINOPHEN TAB 500 MG TAB PO STA (02:08)
[2023-10-24] MEDS: ONDANSETRON 4 MG/2 ML VIAL IVP STA (02:08)
[2023-10-24] MEDS: IBUPROFEN 600 MG TAB PO STA (02:09)
[2023-10-24 02:15] LABS: Basophils % (A) 0 %; Eosinophils % (A) 1 %; HCT 33.5 % (39.0-53.0); HGB 11.4 gm/dL (13.0-17.5); Lymphocytes # (A) 1.5 k/uL (1.0-4.8); Lymphocytes % (A) 39 %; MCH 30.8 pg (25.0-35.0); MCHC 33.9 g/dL (31.0-37.0); MCV 90.9 fL (80.0-100.0); Mean Platelet Volume 8.3; Monocytes # (A) 0.1 k/uL (0-1.0); Monocytes % (A) 2 %; Neutrophils # (A) 2.2 k/uL (1.3-7.7); Neutrophils % (A) 56 %; Platelet Count 161 k/uL (150-450); RBC 3.69 m/uL (4.30-5.90); RDW 13.1 % (11.5-15.5); WBC 3.9 k/uL (3.8-10.6)
[2023-10-24 02:19] LABS: ALT 25 U/L (4-49); AST 34 U/L (17-59); African American GFR (CKD) 61 (>60 ml/min/1.73 sqM); Albumin 3.6 g/dL (3.5-5.0); Alkaline Phosphatase 72 U/L (38-126); Anion Gap 7 mmol/L; Blood Urea Nitrogen 16 mg/dL (9-20); Calcium 8.2 mg/dL (8.4-10.2); Carbon Dioxide 21 mmol/L (22-30); Chloride 108 mmol/L (98-107); Glucose 102 mg/dL (74-99); Lipase 60 U/L (23-300); Magnesium 1.3 mg/dL (1.6-2.3); Non-African American GFR(CKD) 53 (>60 ml/min/1.73 sqM); Phosphorus 1.7 mg/dL (2.5-4.5); Potassium 3.3 mmol/L (3.5-5.1); Sodium 136 mmol/L (137-145); Total Bilirubin 2.8 mg/dL (0.2-1.3); Total Protein 6.1 g/dL (6.3-8.2)
--- NOTE | 2023-10-24 02:26 | XR ---
EXAM: XR Chest, 2 Views CLINICAL HISTORY: ITS.REASON XR Reason: fever TECHNIQUE: Frontal and lateral views of the chest. COMPARISON: 05/11/22 FINDINGS: Lungs: Unremarkable. No consolidation. Pleural space: Unremarkable. No pleural effusion or pneumothorax. Heart: Unremarkable. No cardiomegaly or pulmonary vascular congestion. Bones/joints: No acute fracture. No dislocation. IMPRESSION: No evidence of acute cardiopulmonary disease.
[2023-10-24 02:33] LABS: Appearance,Urine Cloudy (Clear); Bacteria,Urine Rare /hpf; Bilirubin,Urine Negative (Negative); Blood,Urine Large (Negative); Color,Urine Light Yellow; Glucose,Urine (UA) Negative (Negative); Hyaline Casts,Urine 3 /lpf (0-2); Ketones,Urine Negative (Negative); Leukocyte Esterase,Urine Moderate (Negative); Mucus,Urine Rare /hpf; Nitrite,Urine Negative (Negative); PH, Urine 5.5 (5.0-8.0); Protein,Urine Trace (Negative); RBC,Urine >182 /hpf (0-5); Specific Gravity,Urine 1.009 (1.001-1.035); Urobilinogen,Urine <2.0 mg/dL (<2.0); WBC,Urine 66 /hpf (0-5)
[2023-10-24] MEDS: POTASSIUM BICARBONATE/CIT AC 20 MEQ TABLET.EFF PO ONE ×2 (03:01→03:02)
[2023-10-24] MEDS: MAGNESIUM OXIDE 400 MG TAB PO STA ×2 (03:04)
[2023-10-24] MEDS: MAGNESIUM SULFATE-D5W PMX 1 GM in DEXTROSE/WATER 1 100ML.BAG IVPB SCH (03:05)
[2023-10-24] MEDS: SODIUM CHLORIDE 0.9% 1,000 ML IV SCH ×2 (03:09→06:42)
[2023-10-24] MEDS ORDERED: ONDANSETRON 4 MG/2 ML VIAL IVP PRN (05:15)
[2023-10-24] MEDS ORDERED: NALOXONE 0.4 MG/ML 1 ML VIAL IV PRN (05:15)
[2023-10-24] MEDS ORDERED: MORPHINE SULFATE 4 MG/ML SYRINGE IV PRN (05:15)
[2023-10-24] MEDS ORDERED: IBUPROFEN 400 MG TAB PO PRN (05:15)
[2023-10-24] MEDS: DILTIAZEM 5 MG/ML 5 ML VIAL IVP STA (05:44)
[2023-10-24] MEDS: DILTIAZEM DRIP BOLUS FROM BAG 1 MG SOLN IV ONE (06:55)
[2023-10-24] MEDS: DILTIAZEM 125 MG in SODIUM CHLORIDE 0.9% 100 ML IV SCH (06:56)
[2023-10-24] MEDS: SODIUM CHLORIDE 0.9% 1,000 ML IV ONE ×2 (07:58→11:54)
[2023-10-24] MEDS: APIXABAN 5 MG TAB PO SCH (10:14)
--- NOTE | 2023-10-24 11:41 | P.CRDCN ---
History of Present Illness Consult date: 10/24/23 Consult reason: atrial fibrillation History of present illness: patient is a 72-year-old male who follows in the office with Dr. JAMARCUS Wong. The patient presented to the emergency room with fever, nausea, and vomiting. No nausea, vomiting, and diarrhea were occurring over 24 hours, when the patient awoke with fever and tremors. Initial EKG in the emergency room showed sinus rhythm, but then the patient converted to A. fib with RVR, which patient has known history of. Cardizem was started by ER staff and cardiology was consulted for further recommendations. Upon arrival to the exam room, Cardizem had been discontinued approximately 30 minutes prior due to hypotension and patient spontaneously converted back into sinus rhythm. DIAGNOSTICS: Chest x-ray shows no acute cardiopulmonary process Lab data WBC 3.9, hemoglobin 11.4, hematocrit 33.5, platelet 161, sodium 136, potassium 3.3, BUN 16, creatinine 1.34, troponin 0.02, magnesium 1.3, AST 34, ALT 25 REVIEW OF SYSTEMS: Positive for fever or chills. No cough or expectoration. Jamal rios denies headache, dizziness, blurred vision, double vision. Patient denies any stomach discomfort. No current nausea, vomiting. No hematochezia. No hematemesis. Denies any black stools or blood in his stools. Denies dysuria or hematuria. No muscle weakness or numbness. No chest pain or pressure. No dyspnea. PHYSICAL EXAMINATION: This is a 72-year-old male in no apparent distress at the time of my examination. HEENT: Head is atraumatic, normocephalic. Pupils are equal, round. There is no jugular venous distention. No carotid bruit is heard. CHEST EXAMINATION: Lungs are clear to auscultation. No chest wall tenderness is noted on palpation or with deep breathing. HEART EXAMINATION: Heart regular rate and rhythm. S1, S2 heard. No murmurs, gallops or rub. ABDOMEN: Soft, nontender. Bowel sounds are heard. No organomegaly noted. EXTREMITIES: 2+ peripheral pulses with no evidence of peripheral edema and no calf tenderness noted. NEUROLOGIC EXAMINATION: Patient is awake, alert and oriented x3. FINAL ASSESSMENT AND PLAN: Fever and dehydration Gastroenteritis Atrial fibrillation, paroxysmal History hypertension History of coronary artery disease PLAN: resume anticoagulation Resume home dose of beta blockers outpatient follow-up with primary lawyer Dr. JAMARCUS Wong I am dictating on behalf of Dr Louis Ross's history/physical and assessment/plan. Past Medical History Past Medical History: Asthma, Cancer, Hypertension Additional Past Medical History / Comment(s): HX SKIN CA History of Any Multi-Drug Resistant Organisms: None Reported Past Surgical History: Orthopedic Surgery, Tonsillectomy Additional Past Surgical History / Comment(s): SKIN CA REMOVED, Past Anesthesia/Blood Transfusion Reactions: No Reported Reaction Smoking Status: Never smoker - Past Family History Mother Family Medical History: No Reported History Medications and Allergies Home Medications Medication Instructions Recorded Confirmed Type Vitamin B Complex 1 cap PO DAILY 05/12/22 10/24/23 History Apixaban [Eliquis] 5 mg PO BID #60 tab 05/14/22 10/24/23 Rx Cholecalciferol [Vitamin D3 (25 25 mcg PO DAILY 08/17/22 10/24/23 History Mcg = 1000 Iu)] Losartan Potassium [Cozaar] 50 mg PO DAILY 08/17/22 10/24/23 History Clopidogrel [Plavix] 75 mg PO DAILY 08/20/22 10/24/23 History Ascorbic Acid [Vitamin C] 500 mg PO DAILY 10/24/23 10/24/23 History Atorvastatin [Lipitor] 40 mg PO HS 10/24/23 10/24/23 History Calcium/Magnesium/Zinc 1 tab PO DAILY 10/24/23 10/24/23 History Levothyroxine Sodium [Synthroid] 50 mcg PO AC-BRKFST 10/24/23 10/24/23 History Metoprolol Succinate [Toprol XL] 75 mg PO DAILY 10/24/23 10/24/23 History Multivit-Mins/Iron/Folic/Lycop 1 tab PO DAILY 10/24/23 10/24/23 History [Centrum Men's Tablet] Pantoprazole [Protonix] 40 mg PO DAILY 10/24/23 10/24/23 History Sildenafil Citrate 100 mg PO Q72H PRN 10/24/23 10/24/23 History Allergies Allergy/AdvReac Type Severity Reaction Status Date / Time No Known Allergies Allergy Verified 10/24/23 08:59 Physical Exam Vitals: Vital Signs Temp Pulse Resp BP Pulse Ox 10/24/23 10:00 57 L 18 104/82 98 10/24/23 09:30 18 96/76 96 10/24/23 09:00 87 18 101/84 96 10/24/23 08:30 116 H 18 94/71 98 10/24/23 08:00 82 18 81/65 99 10/24/23 07:30 85 18 78/60 98 10/24/23 07:15 122 H 22 77/52 94 L 10/24/23 07:00 99 18 85/61 94 L 10/24/23 06:57 97.5 F L 121 H 16 83/57 95 10/24/23 05:54 65 20 98/71 94 L 10/24/23 04:37 72 18 97/69 94 L 10/24/23 03:41 98.4 F 80 20 96/68 95 10/24/23 02:03 90 18 125/80 93 L 10/24/23 00:26 101.7 F H 91 20 132/77 94 L Intake and Output 10/23/23 10/24/23 10/24/23 22:59 06:59 14:59 Other: Weight 78.653 kg Results 10/24/23 01:06 10/24/23 01:06 Cardiac Enzymes 10/24/23 10/24/23 Range/Units 01:06 08:22 AST 34 (17-59) U/L Troponin I 0.023 (0.000-0.034) ng/mL CBC 10/24/23 Range/Units 01:06 WBC 3.9 (3.8-10.6) k/uL RBC 3.69 L (4.30-5.90) m/uL Hgb 11.4 L (13.0-17.5) gm/dL Hct 33.5 L (39.0-53.0) % Plt Count 161 (150-450) k/uL Comprehensive Metabolic Panel 10/24/23 Range/Units 01:06 Sodium 136 L (137-145) mmol/L Potassium 3.3 L (3.5-5.1) mmol/L Chloride 108 H (98-107) mmol/L Carbon Dioxide 21 L (22-30) mmol/L BUN 16 (9-20) mg/dL Creatinine 1.34 H (0.66-1.25) mg/dL Glucose 102 H (74-99) mg/dL Calcium 8.2 L (8.4-10.2) mg/dL AST 34 (17-59) U/L ALT 25 (4-49) U/L Alkaline Phosphatase 72 (38-126) U/L Total Protein 6.1 L (6.3-8.2) g/dL Albumin 3.6 (3.5-5.0) g/dL Current Medications Generic Name Dose Route Start Last Admin Trade Name Freq PRN Reason Stop Dose Admin Acetaminophen 650 mg 10/24/23 05:15 Acetaminophen Tab 325 Mg Tab PO Q6HR PRN Mild Pain or Fever > 100.5 Apixaban 5 mg 10/24/23 10:15 10/24/23 10:14 Apixaban 5 Mg Tab PO 5 mg BID YOSHI Administration Protocol Sodium Chloride 1,000 mls @ 130 mls/hr 10/24/23 02:30 10/24/23 05:51 Saline 0.9% IV 130 mls/hr .Q7H42M YOSHI Administration Ceftriaxone Sodium 2 gm/ 50 mls @ 100 mls/hr 10/25/23 09:00 Sodium Chloride IVPB Q24HR YOSHI Protocol Sodium Chloride 1,000 mls @ 130 mls/hr 10/24/23 05:15 10/24/23 06:42 Saline 0.9% IV Not Given .Q7H42M YOSHI Diltiazem HCl 125 mg/ Sodium 125 mls @ 5 mls/hr 10/24/23 06:45 10/24/23 06:56 Chloride IV 5 mg/hr .Q24H YOSHI 5 mls/hr Administration 5 MG/HR Ibuprofen 400 mg 10/24/23 05:15 Ibuprofen 400 Mg Tab PO Q6HR PRN Mild Pain or Fever > 100.5 Metoprolol Succinate 75 mg 10/25/23 09:00 Metoprolol Succinate (Er) 50 Mg Tab.Er.24h PO DAILY YOSHI Metoprolol Tartrate 25 mg 10/24/23 17:00 Metoprolol Tartrate 25 Mg Tab PO 10/24/23 17:01 ONCE ONE Morphine Sulfate 4 mg 10/24/23 05:15 Morphine Sulfate 4 Mg/Ml Syringe IV Q4HR PRN Severe Pain (Scale 7 to 10) Naloxone HCl 0.2 mg 10/24/23 05:15 Naloxone 0.4 Mg/Ml 1 Ml Vial IV Q2M PRN Opioid Reversal Ondansetron HCl 4 mg 10/24/23 05:15 Ondansetron 4 Mg/2 Ml Vial IVP Q8HR PRN Nausea And Vomiting Intake and Output 10/23/23 10/24/23 10/24/23 22:59 06:59 14:59 Other: Weight 78.653 kg 10/24/23 01:06 10/24/23 01:06
[2023-10-24 11:45] LABS: African American GFR (CKD) 56 (>60 ml/min/1.73 sqM); Anion Gap 5 mmol/L; Blood Urea Nitrogen 16 mg/dL (9-20); Calcium 7.3 mg/dL (8.4-10.2); Carbon Dioxide 21 mmol/L (22-30); Chloride 114 mmol/L (98-107); Glucose 119 mg/dL (74-99); Non-African American GFR(CKD) 49 (>60 ml/min/1.73 sqM); Potassium 3.6 mmol/L (3.5-5.1); Sodium 140 mmol/L (137-145)
[2023-10-24 11:53] LABS: HCT 31.5 % (39.0-53.0); HGB 10.1 gm/dL (13.0-17.5); Hypochromasia Slight; MCH 30.2 pg (25.0-35.0); MCHC 32.2 g/dL (31.0-37.0); MCV 93.7 fL (80.0-100.0); Mean Platelet Volume 8.9; Platelet Count 132 k/uL (150-450); RBC 3.36 m/uL (4.30-5.90); RDW 13.4 % (11.5-15.5); WBC 11.5 k/uL (3.8-10.6)
--- NOTE | 2023-10-24 14:36 | P.HPIM ---
History of Present Illness H&P Date: 10/24/23 History of present illness; 72-year-old male patient with past medical history significant for hypertension, asthma, skin cancer who presented to ER with complaint of fever, nausea, vomiting and 1 episode of explosive diarrhea. Patient stated that he recently was on a motor bike trip for about a week, his oral intake including fluids and diet was not adequate. Family at bedside reported that patient had rigors and chills upon waking up. Patient reported that he was constipated for 3 days before having 1 episode of loose stool. Patient denied any abdominal pain. Patient denied any fever, headache, neck pain, sore throat, productive cough, chest pain, palpitations, dysuria urgency frequency weakness or numbness in extremities. On presentation to the ED patient was febrile with temp 101.7 Pulse rate 91, respiratory rate 20, blood pressure 132/77, was saturating 94% on room air. Later in the course of the ED patient went into A-fib with RVR required Cardizem drip. Also patient became hypotensive requiring multiple fluid boluses although patient remained asymptomatic. Initial lab work showed WBC 3.9, hemoglobin 11.4, platelet 161, repeat WBC count 11.5 today. CMP showed sodium 136, potassium 3.3, CO2 21, BUN 16, creatinine 1.34, normal AST ALT, total bilirubin was 2.3. Magnesium 1.3 phosphorus 1.7. Troponin was negative. UA showed more than 182 RBCs, WBC 66, hyaline cast. Influenza RSV and COVID was negative. Chest x-ray was negative. REVIEW OF SYSTEMS: CONSTITUTIONAL: No fever, no malaise, no fatigue. HEENT: No recent visual problems or hearing problems. Denied any sore throat. CARDIOVASCULAR: No chest pain, orthopnea, PND, no palpitations, no syncope. PULMONARY: No shortness of breath, no cough, no hemoptysis. GASTROINTESTINAL: No diarrhea, no nausea, no vomiting, no abdominal pain. NEUROLOGICAL: No headaches, no weakness, no numbness. HEMATOLOGICAL: Denies any bleeding or petechiae. GENITOURINARY: Denies any burning micturition, frequency, or urgency. MUSCULOSKELETAL/RHEUMATOLOGICAL: Denies any joint pain, swelling, or any muscle pain. ENDOCRINE: Denies any polyuria or polydipsia. The rest of the 14-point review of systems is negative. PHYSICAL EXAMINATION: GENERAL: The patient is alert and oriented x3, not in any acute distress. Well developed, well nourished. HEENT: Pupils are round and equally reacting to light. EOMI. No scleral icterus. No conjunctival pallor. Normocephalic, atraumatic. No pharyngeal erythema. No thyromegaly. CARDIOVASCULAR: S1 and S2 present. No murmurs, rubs, or gallops. PULMONARY: Chest is clear to auscultation, no wheezing or crackles. ABDOMEN: Soft, nontender, nondistended, normoactive bowel sounds. No palpable organomegaly. MUSCULOSKELETAL: No joint swelling or deformity. EXTREMITIES: No cyanosis, clubbing, or pedal edema. NEUROLOGICAL: Gross neurological examination did not reveal any focal deficits. SKIN: No rashes. Assessment and plan A-fib with RVR: History of coronary artery disease: Hypertension: In the setting of fever and dehydration. Initially required Cardizem drip. Heart rate now controlled, currently in normal sinus rhythm. Resume home beta-corrine, started Eliquis. Cardiology consultedrecommended to resume home dose beta-corrine and ant icoagulation. Fever: Dehydration: Suspected gastroenteritis: Hypotension: Presented with rigors, chills, hypotension, dehydrated. Could be heatstroke. Unknown source of fever. Rocephin and Flagyl. Blood cultures Aggressive IV fluids Infectious disease consult. Discussed with ICU, will monitor closely in stepdown. DVT prophylaxis. AC Monitor vital signs Monitor CBC Monitor CMP Continue telemetry monitoring Labs and medication were reviewed.. Continue same treatment. Continue with symptomatic treatment. Resume home medication. Monitor labs and vitals. Further recommendations as per clinical course of the patient Dictation was produced using [employer] dictation software. please excuse any grammatical, word or spelling errors. Past Medical History Past Medical History: Asthma, Cancer, Hypertension Additional Past Medical History / Comment(s): HX SKIN CA History of Any Multi-Drug Resistant Organisms: None Reported Past Surgical History: Orthopedic Surgery, Tonsillectomy Additional Past Surgical History / Comment(s): SKIN CA REMOVED, Past Anesthesia/Blood Transfusion Reactions: No Reported Reaction Smoking Status: Never smoker - Past Family History Mother Family Medical History: No Reported History Medications and Allergies Home Medications Medication Instructions Recorded Confirmed Type Vitamin B Complex 1 cap PO DAILY 05/12/22 10/24/23 History Apixaban [Eliquis] 5 mg PO BID #60 tab 05/14/22 10/24/23 Rx Cholecalciferol [Vitamin D3 (25 25 mcg PO DAILY 08/17/22 10/24/23 History Mcg = 1000 Iu)] Losartan Potassium [Cozaar] 50 mg PO DAILY 08/17/22 10/24/23 History Clopidogrel [Plavix] 75 mg PO DAILY 08/20/22 10/24/23 History Ascorbic Acid [Vitamin C] 500 mg PO DAILY 10/24/23 10/24/23 History Atorvastatin [Lipitor] 40 mg PO HS 10/24/23 10/24/23 History Calcium/Magnesium/Zinc 1 tab PO DAILY 10/24/23 10/24/23 History Levothyroxine Sodium [Synthroid] 50 mcg PO AC-BRKFST 10/24/23 10/24/23 History Metoprolol Succinate [Toprol XL] 75 mg PO DAILY 10/24/23 10/24/23 History Multivit-Mins/Iron/Folic/Lycop 1 tab PO DAILY 10/24/23 10/24/23 History [Centrum Men's Tablet] Pantoprazole [Protonix] 40 mg PO DAILY 10/24/23 10/24/23 History Sildenafil Citrate 100 mg PO Q72H PRN 10/24/23 10/24/23 History Allergies Allergy/AdvReac Type Severity Reaction Status Date / Time No Known Allergies Allergy Verified 10/24/23 08:59 Physical Exam Vitals: Vital Signs Temp Pulse Resp BP Pulse Ox 10/24/23 13:43 96.8 F L 57 L 18 103/68 97 10/24/23 13:00 59 L 18 96/62 98 10/24/23 12:27 56 L 18 101/78 98 10/24/23 12:09 59 L 18 103/75 98 10/24/23 12:00 60 17 93/72 98 10/24/23 11:47 59 L 18 93/72 98 10/24/23 11:36 56 L 18 74/54 98 10/24/23 11:30 55 L 19 79/52 100 10/24/23 11:00 61 19 80/54 96 10/24/23 10:30 55 L 17 76/53 99 10/24/23 10:00 57 L 18 104/82 98 10/24/23 09:30 18 96/76 96 10/24/23 09:00 87 18 101/84 96 10/24/23 08:30 116 H 18 94/71 98 10/24/23 08:00 82 18 81/65 99 10/24/23 07:30 85 18 78/60 98 10/24/23 07:15 122 H 22 77/52 94 L 10/24/23 07:00 99 18 85/61 94 L 10/24/23 06:57 97.5 F L 121 H 16 83/57 95 10/24/23 05:54 65 20 98/71 94 L 10/24/23 04:37 72 18 97/69 94 L 10/24/23 03:41 98.4 F 80 20 96/68 95 10/24/23 02:03 90 18 125/80 93 L 10/24/23 00:26 101.7 F H 91 20 132/77 94 L Intake and Output 10/23/23 10/24/23 10/24/23 22:59 06:59 14:59 Intake Total 5250 Balance 5250 Intake: Intake, IV Titration 5250 Amount Magnesium Sulfate-D5w Pmx 200 1 gm In Dextrose/Water 1 100ml.bag @ 100 mls/hr IVPB Q1H YOSHI Rx#: [id number] Sodium Chloride 0.9% 1, 1000 000 ml @ 999 mls/hr IV . Q1H1M ONE Rx#:[id number] Sodium Chloride 0.9% 1, 1000 000 ml @ 999 mls/hr IV . Q1H1M ONE Rx#:[id number] Sodium Chloride 0.9% 1, 1000 000 ml @ 999 mls/hr IV . Q1H1M STA Rx#:[id number] Sodium Chloride 0.9% 1, 1000 000 ml @ 999 mls/hr IV . Q1H1M STA Rx#:[id number] Sodium Chloride 0.9% 1, 1000 000 ml @ 999 mls/hr IV . Q1H1M STA Rx#:[id number] cefTRIAXone 2 gm In 50 Sodium Chloride 0.9% 50 ml @ 100 mls/hr IVPB ONCE STA Rx#:[id number] Other: Weight 78.653 kg Results CBC & Chem 7: 10/24/23 08:22 10/24/23 08:22 Labs: Abnormal Lab Results - Last 24 Hours (Table) 10/24/23 10/24/23 10/24/23 Range/Units 01:06 01:06 02:00 WBC (3.8-10.6) k/uL RBC 3.69 L (4.30-5.90) m/uL Hgb 11.4 L (13.0-17.5) gm/dL Hct 33.5 L (39.0-53.0) % Plt Count (150-450) k/uL Sodium 136 L (137-145) mmol/L Potassium 3.3 L (3.5-5.1) mmol/L Chloride 108 H (98-107) mmol/L Carbon Dioxide 21 L (22-30) mmol/L Creatinine 1.34 H (0.66-1.25) mg/dL Glucose 102 H (74-99) mg/dL Calcium 8.2 L (8.4-10.2) mg/dL Phosphorus 1.7 L (2.5-4.5) mg/dL Magnesium 1.3 L (1.6-2.3) mg/dL Total Bilirubin 2.8 H (0.2-1.3) mg/dL Total Protein 6.1 L (6.3-8.2) g/dL Urine Protein Trace H (Negative) Urine Blood Large H (Negative) Ur Leukocyte Esterase Moderate H (Negative) Urine RBC >182 H (0-5) /hpf Urine WBC 66 H (0-5) /hpf Urine WBC Clumps Rare H (None) /hpf Urine Bacteria Rare H (None) /hpf Hyaline Casts 3 H (0-2) /lpf Urine Mucus Rare H (None) /hpf 10/24/23 10/24/23 Range/Units 08:22 08:22 WBC 11.5 H (3.8-10.6) k/uL RBC 3.36 L (4.30-5.90) m/uL Hgb 10.1 L (13.0-17.5) gm/dL Hct 31.5 L (39.0-53.0) % Plt Count 132 L (150-450) k/uL Sodium (137-145) mmol/L Potassium (3.5-5.1) mmol/L Chloride 114 H (98-107) mmol/L Carbon Dioxide 21 L (22-30) mmol/L Creatinine 1.43 H (0.66-1.25) mg/dL Glucose 119 H (74-99) mg/dL Calcium 7.3 L (8.4-10.2) mg/dL Phosphorus (2.5-4.5) mg/dL Magnesium (1.6-2.3) mg/dL Total Bilirubin (0.2-1.3) mg/dL Total Protein (6.3-8.2) g/dL Urine Protein (Negative) Urine Blood (Negative) Ur Leukocyte Esterase (Negative) Urine RBC (0-5) /hpf Urine WBC (0-5) /hpf Urine WBC Clumps (None) /hpf Urine Bacteria (None) /hpf Hyaline Casts (0-2) /lpf Urine Mucus (None) /hpf
[2023-10-24] MEDS: metroNIDAZOLE 500 MG TAB PO SCH (16:41)
[2023-10-24] MEDS: METOPROLOL TARTRATE 25 MG TAB PO ONE (16:41)
[2023-10-25 08:07] LABS: Basophils % (A) 0 %; Eosinophils # (A) 0.1 k/uL (0-0.7); Eosinophils % (A) 1 %; HCT 28.8 % (39.0-53.0); HGB 9.3 gm/dL (13.0-17.5); Hypochromasia Moderate; Lymphocytes # (A) 1.9 k/uL (1.0-4.8); Lymphocytes % (A) 20 %; MCH 30.1 pg (25.0-35.0); MCHC 32.2 g/dL (31.0-37.0); MCV 93.6 fL (80.0-100.0); Monocytes # (A) 0.4 k/uL (0-1.0); Monocytes % (A) 4 %; Neutrophils # (A) 6.9 k/uL (1.3-7.7); Neutrophils % (A) 72 %; Platelet Count 130 k/uL (150-450); RBC 3.07 m/uL (4.30-5.90); RDW 13.6 % (11.5-15.5); WBC 9.6 k/uL (3.8-10.6)
[2023-10-25 08:26] LABS: ALT 38 U/L (4-49); AST 57 U/L (17-59); African American GFR (CKD) 68 (>60 ml/min/1.73 sqM); Albumin 2.6 g/dL (3.5-5.0); Alkaline Phosphatase 56 U/L (38-126); Anion Gap 3 mmol/L; Blood Urea Nitrogen 18 mg/dL (9-20); Carbon Dioxide 21 mmol/L (22-30); Chloride 117 mmol/L (98-107); Glucose 73 mg/dL (74-99); Magnesium 1.9 mg/dL (1.6-2.3); Non-African American GFR(CKD) 59 (>60 ml/min/1.73 sqM); Phosphorus 2.3 mg/dL (2.5-4.5); Potassium 3.6 mmol/L (3.5-5.1); Sodium 141 mmol/L (137-145)
[2023-10-25 09:16] VITALS: RESP 18
[2023-10-25] MEDS: METOPROLOL SUCCINATE (ER) 50 MG TAB.ER.24H PO SCH (09:17)
[2023-10-25] MEDS: POTASSIUM CHLORIDE ER 20 MEQ TAB.ER PO STA (16:21)
[2023-10-25] MEDS: ACETAMINOPHEN TAB 325 MG TAB PO PRN (16:26)
--- NOTE | 2023-10-25 22:05 | P.CONS ---
History of Present Illness - Reason for Consult Consult date: 10/25/23 Fever of unknown origin Requesting physician: Travis Roblero - Chief Complaint Rigors and chills x 1 day - History of Present Illness Patient is a 72-year-old male with a past medical history significant for hypertension asthma history of skin cancer patient presenting to the ER yesterday morning for evaluation of rigors and chills fever and apparently did have an episode of nausea and vomiting along with diarrhea patient mention his symptoms initially started with rigors and chills waking him up patient denies having any headache or URI symptoms no chest pain shortness of breath or significant cough did have some nausea patient did admit having some difficulty urination and burning with the symptoms the patient has been evaluated on presentation to the hospital patient did have a fever of 101.7 F patient was not tachycardic or hypotensive not hypoxic no need for supplemental oxygen patient did have white count of 11.5 with a left shift creatinine was mildly elevated repeat is normal liver isms are normal urine has been positive influenza RSV COVID testing has been negative patient did have chest x-ray no evidence for acute cardiopulmonary disease patient was started on Rocephin unfortunately no urine culture was done infectious disease was consulted consulted for fever of unknown origin Review of Systems Positive point and negatives has been mentioned in the HPI, complete review of systems was performed and all other systems are negative Past Medical History Past Medical History: Asthma, Cancer, Hypertension Additional Past Medical History / Comment(s): HX SKIN CA History of Any Multi-Drug Resistant Organisms: None Reported Past Surgical History: Orthopedic Surgery, Tonsillectomy Additional Past Surgical History / Comment(s): SKIN CA REMOVED, Past Anesthesia/Blood Transfusion Reactions: No Reported Reaction Date of Last Stent Placement:: 08/20/22 Smoking Status: Never smoker - Past Family History Mother Family Medical History: No Reported History Medications and Allergies Home Medications Medication Instructions Recorded Confirmed Type Vitamin B Complex 1 cap PO DAILY 05/12/22 10/24/23 History Apixaban [Eliquis] 5 mg PO BID #60 tab 05/14/22 10/24/23 Rx Cholecalciferol [Vitamin D3 (25 25 mcg PO DAILY 08/17/22 10/24/23 History Mcg = 1000 Iu)] Losartan Potassium [Cozaar] 50 mg PO DAILY 08/17/22 10/24/23 History Clopidogrel [Plavix] 75 mg PO DAILY 08/20/22 10/24/23 History Ascorbic Acid [Vitamin C] 500 mg PO DAILY 10/24/23 10/24/23 History Atorvastatin [Lipitor] 40 mg PO HS 10/24/23 10/24/23 History Calcium/Magnesium/Zinc 1 tab PO DAILY 10/24/23 10/24/23 History Levothyroxine Sodium [Synthroid] 50 mcg PO AC-BRKFST 10/24/23 10/24/23 History Metoprolol Succinate [Toprol XL] 75 mg PO DAILY 10/24/23 10/24/23 History Multivit-Mins/Iron/Folic/Lycop 1 tab PO DAILY 10/24/23 10/24/23 History [Centrum Men's Tablet] Pantoprazole [Protonix] 40 mg PO DAILY 10/24/23 10/24/23 History Sildenafil Citrate 100 mg PO Q72H PRN 10/24/23 10/24/23 History Allergies Allergy/AdvReac Type Severity Reaction Status Date / Time No Known Allergies Allergy Verified 10/24/23 08:59 Physical Exam Vitals: Vital Signs Temp Pulse Pulse Resp BP BP Pulse Ox 10/25/23 10:20 72 18 10/25/23 09:04 98.0 F 72 18 127/84 97 10/25/23 04:53 65 17 106/67 98 10/25/23 02:00 17 10/24/23 23:30 64 17 91/52 100 10/24/23 20:52 98.0 F 65 17 92/52 96 10/24/23 20:00 17 10/24/23 18:05 98.2 F 65 17 105/66 98 10/24/23 14:15 97.6 F 61 17 110/72 99 10/24/23 13:43 96.8 F L 57 L 18 103/68 97 10/24/23 13:00 59 L 18 96/62 98 10/24/23 12:27 56 L 18 101/78 98 10/24/23 12:09 59 L 18 103/75 98 10/24/23 12:00 60 17 93/72 98 10/24/23 11:47 59 L 18 93/72 98 10/24/23 11:36 56 L 18 74/54 98 10/24/23 11:30 55 L 19 79/52 100 Intake and Output 10/24/23 10/25/23 10/25/23 22:59 06:59 14:59 Intake Total 118 110 Balance 118 110 Intake: Oral 118 110 Other: # Voids 1 Weight 86.6 kg GENERAL DESCRIPTION: Elderly male lying in bed, no distress. No tachypnea or accessory muscle of respiration use. HEENT: Shows Pallor , no scleral icterus. Oral mucous membrane is dry. No pharyngeal erythema or thrush NECK: Trachea central, no thyromegaly. LUNGS: Unlabored breathing. Clear to auscultation anteriorly. No wheeze or crackle. HEART: S1, S2, regular rate and rhythm. No loud murmur ABDOMEN: Soft, no tenderness , guarding or rigidity, no organomegaly EXTREMITIES: No edema of feet. SKIN: No rash, no masses palpable. NEUROLOGICAL: The patient is awake, alert, oriented x3, mood and affect normal. Results CBC & Chem 7: 10/25/23 07:21 10/25/23 07:21 Labs: Abnormal Lab Results - Last 24 Hours (Table) 10/24/23 10/24/23 10/25/23 Range/Units 08:22 08:22 07:21 WBC 11.5 H (3.8-10.6) k/uL RBC 3.36 L 3.07 L (4.30-5.90) m/uL Hgb 10.1 L 9.3 L (13.0-17.5) gm/dL Hct 31.5 L 28.8 L (39.0-53.0) % Plt Count 132 L 130 L (150-450) k/uL Chloride 114 H (98-107) mmol/L Carbon Dioxide 21 L (22-30) mmol/L Creatinine 1.43 H (0.66-1.25) mg/dL Glucose 119 H (74-99) mg/dL Calcium 7.3 L (8.4-10.2) mg/dL Phosphorus (2.5-4.5) mg/dL Total Protein (6.3-8.2) g/dL Albumin (3.5-5.0) g/dL 10/25/23 Range/Units 07:21 WBC (3.8-10.6) k/uL RBC (4.30-5.90) m/uL Hgb (13.0-17.5) gm/dL Hct (39.0-53.0) % Plt Count (150-450) k/uL Chloride 117 H (98-107) mmol/L Carbon Dioxide 21 L (22-30) mmol/L Creatinine (0.66-1.25) mg/dL Glucose 73 L (74-99) mg/dL Calcium 7.0 L (8.4-10.2) mg/dL Phosphorus 2.3 L (2.5-4.5) mg/dL Total Protein 5.0 L (6.3-8.2) g/dL Albumin 2.6 L (3.5-5.0) g/dL Assessment and Plan (1) UTI (urinary tract infection) Current Visit: Yes Status: Acute Code(s): N39.0 - URINARY TRACT INFECTION, SITE NOT SPECIFIED SNOMED Code(s): 16760662 Plan: 1patient presented to hospital with fever rigors and chills in this patient also having urinary burning and frequency source and likely UTI and likely from enteric gram-negative pathogen patient currently do not have any other obvious focus of infection 2-we will request for urine culture patient has been on admission has been did have significant positive UA 3-continue with Rocephin in view of clinical response 4-check ultrasound kidney and bladder area to make sure evidence of any obstructive uropathy as he did have elevated creatinine on admission We will follow on clinical condition and cultures to further adjust medication if needed Thank you for this consultation we will follow the patient along with you Dictation was produced using [employer] dictation software. please excuse any grammatical, word or spelling errors. Time with Patient: Greater than 30
[2023-10-25] MEDS: ATORVASTATIN 40 MG TAB PO SCH (22:12)
--- NOTE | 2023-10-26 07:54 | US ---
EXAMINATION TYPE: US kidneys/renal and bladder DATE OF EXAM: 10/26/2023 COMPARISON: NONE CLINICAL INDICATION: Male, 72 years old with history of uti and bacteremia; Hx HTN; Unable to complet angelita empty bladder EXAM MEASUREMENTS: Right Kidney: 13.6 x 5.3 x 7.1 cm Left Kidney: 13.3 x 5.8 x cm Post Void Residual Volume: NA mL Right Kidney: Simple cyst = 4.3 x 3.8 x 5.1 cm Left Kidney: Simple cyst = 4.8 x 3.2 x 3.5 cm Bladder: WNL Bilateral Jets seen: YES Normal Post Void Residual: NA There is no evidence for hydronephrosis at this point in time. No nephrolithiasis is seen. The urina ry bladder is anechoic. Bilateral ureteral jets are seen. Incidentals = edematous gallbladder, dilated portal vein = 1.8 cm, and trace fluid seen throughout ab domen and pelvis IMPRESSION: 1. Bilateral renal cysts with no evidence of hydronephrosis or nephrolithiasis. 2. The gallbladder wall is edematous and there is a trace of fluid within the abdomen. Correlate for acute cholecystitis. A Red level critical message alert has been initiated for Gerry Stock via the [employer] Results System on 10/26/2023 7:52 AM. This message alert has been sent to Gerry Stock via the p references provided by the clinician for the receipt of Radiology Critical Findings. [place] [id number].
[2023-10-26 08:05] LABS: African American GFR (CKD) >90 (>60 ml/min/1.73 sqM); Anion Gap 3 mmol/L; Blood Urea Nitrogen 11 mg/dL (9-20); Calcium 6.9 mg/dL (8.4-10.2); Carbon Dioxide 18 mmol/L (22-30); Chloride 119 mmol/L (98-107); Glucose 99 mg/dL (74-99); Non-African American GFR(CKD) 79 (>60 ml/min/1.73 sqM); Potassium 3.5 mmol/L (3.5-5.1); Sodium 140 mmol/L (137-145)
[2023-10-26 08:10] LABS: Basophils # (A) 0.1 k/uL (0-0.2); Basophils % (A) 1 %; Eosinophils # (A) 0.2 k/uL (0-0.7); Eosinophils % (A) 3 %; HCT 27.4 % (39.0-53.0); HGB 9.4 gm/dL (13.0-17.5); Lymphocytes # (A) 1.3 k/uL (1.0-4.8); Lymphocytes % (A) 20 %; MCH 32.3 pg (25.0-35.0); MCHC 34.3 g/dL (31.0-37.0); MCV 94.1 fL (80.0-100.0); Monocytes # (A) 0.3 k/uL (0-1.0); Monocytes % (A) 5 %; Neutrophils # (A) 4.7 k/uL (1.3-7.7); Neutrophils % (A) 69 %; Platelet Count 129 k/uL (150-450); RBC 2.91 m/uL (4.30-5.90); RDW 13.7 % (11.5-15.5); WBC 6.8 k/uL (3.8-10.6)
[2023-10-26 08:24] VITALS: TEMP 98.2
--- NOTE | 2023-10-26 08:55 | P.PN ---
Subjective Progress Note Date: 10/25/23 This is a 72-year-old gentleman presented to the ER with complaints of chills, rigors, nausea,vomiting after completing a motorcycle trip over the weekend, consumed [place] food. Reports he felt like he had a fever but did not actually check it. Also complained of bladder pressure and constipation, from holding his urine until the next stop along the trip. Reports he usually has loose stools. Denies chest pain, palpitations or shortness of breath. Maintaining O2 sats in the 90s on room air. denies syncope. denies lightheadedness dizziness or focal deficits. Complains of sore throat. On admission temperature 101.7, WBC 11.5 without hypotension or tachycardia. Chest x-ray reported no evidence of acute cardiopulmonary disease. Telemetry sinus rhythm. Viral studies negative. Urine reported moderate leukocytes, will large blood, negative nitrates. No urine culture. ceftriaxone initiated in the ER. Afebrile, normal WBC. Hemoglobin 9.3, platelets 130, sodium 141, potassium 3.6, bicarb 21, BUN 18, creatinine decreased to 1.22, magnesium 1.9. Objective - Vital Signs Vital signs: Vital Signs Temp 98.0 F 10/25/23 09:04 Pulse 61 10/25/23 13:32 Resp 18 10/25/23 13:32 BP 107/69 10/25/23 11:37 Pulse Ox 97 10/25/23 11:37 FiO2 Intake & Output 10/24/23 10/25/23 10/25/23 18:59 06:59 18:59 Intake Total 5368 220 Balance 5368 220 Weight 78.653 kg 86.6 kg Intake: Intake, IV Titration 5250 Amount Magnesium Sulfate-D5w Pmx 200 1 gm In Dextrose/Water 1 100ml.bag @ 100 mls/hr IVPB Q1H YOSHI Rx#: [id number] Sodium Chloride 0.9% 1, 1000 000 ml @ 999 mls/hr IV . Q1H1M ONE Rx#:[id number] Sodium Chloride 0.9% 1, 1000 000 ml @ 999 mls/hr IV . Q1H1M ONE Rx#:[id number] Sodium Chloride 0.9% 1, 1000 000 ml @ 999 mls/hr IV . Q1H1M STA Rx#:[id number] Sodium Chloride 0.9% 1, 1000 000 ml @ 999 mls/hr IV . Q1H1M STA Rx#:[id number] Sodium Chloride 0.9% 1, 1000 000 ml @ 999 mls/hr IV . Q1H1M STA Rx#:[id number] cefTRIAXone 2 gm In 50 Sodium Chloride 0.9% 50 ml @ 100 mls/hr IVPB ONCE STA Rx#:[id number] Oral 118 220 Other: # Voids 1 - Exam PHYSICAL EXAM: VITAL SIGNS: [As above] GENERAL: Alert and oriented x 3, sitting up in bed, no acute distress HEENT: Normocephalic, atraumatic conjunctivae normal. eyes normal. MMM, no thrush, no redness NECK: Supple, no JVD. No thyroid enlargement. No LNs CARDIOVASCULAR: S1, S2 regular.. No murmur RESPIRATION: Unlabored, equal air entry, clear to auscultation. ABDOMEN: Soft, nondistended, nontender . No guarding. no masses palpable. +BS. LEGS: No edema. no swelling NERVOUS SYSTEM: Cranial N 2-12 grossly normal. No focal deficits. Strength and sensation grossly intact. Skin: Warm and dry, no rash - Labs CBC & Chem 7: 10/26/23 07:26 10/26/23 07:26 Labs: Abnormal Lab Results - Last 24 Hours (Table) 10/25/23 10/25/23 Range/Units 07:21 07:21 RBC 3.07 L (4.30-5.90) m/uL Hgb 9.3 L (13.0-17.5) gm/dL Hct 28.8 L (39.0-53.0) % Plt Count 130 L (150-450) k/uL Chloride 117 H (98-107) mmol/L Carbon Dioxide 21 L (22-30) mmol/L Glucose 73 L (74-99) mg/dL Calcium 7.0 L (8.4-10.2) mg/dL Phosphorus 2.3 L (2.5-4.5) mg/dL Total Protein 5.0 L (6.3-8.2) g/dL Albumin 2.6 L (3.5-5.0) g/dL Microbiology - Last 24 Hours (Table) 10/24/23 01:00 Blood Culture - Preliminary Blood 10/24/23 01:15 Blood Culture - Preliminary Blood Assessment and Plan Assessment: Acute UTI Acute renal failure, secondary to dehydration improving with IV fluid hydration Possible gastroenteritis Chronic paroxysmal atrial fibrillation, status post Cardizem drip, currently sinus rhythm CAD Hypertension Hypothyroidism Plan: Continue on current medication regimen ,monitoring and symptomatic t reatment. Creatinine improving, blood pressures soft, continue on IV fluid hydration. Maintain antibiotics. Check a rapid strep. Infectious disease consult in place, recommendations pending. Increase ambulation as tolerated. Close monitoring of renal function, electrolytes with repeat labs ordered for a.m. The impression and plan of care has been dictated as directed. : I performed a history and examination of this patient, discussed the same with the dictator. I agree with the dictator's note ,documented as a scribe. Any additional findings or plans will be noted.
[2023-10-26] MEDS ORDERED: APIXABAN 5 MG TAB PO SCH (09:00)
[2023-10-26] MEDS: LEVOTHYROXINE 50 MCG TAB PO SCH (09:42)
[2023-10-26] MEDS: CLOPIDOGREL 75 MG TAB PO SCH (09:42)
[2023-10-26] MEDS: CHOLECALCIFEROL 25 MCG (1000 IU) TABLET PO SCH (09:42)
[2023-10-26] MEDS: PANTOPRAZOLE 40 MG/10 ML VIAL IVP SCH (09:42)
--- NOTE | 2023-10-26 12:35 | CDI ---
Documentation Clarification Form Date: 10/26/2023 From: Elizabeth Hearn Phone: [phone] Admit Date: 10/24/2023 05:15:00 AM Patient Name: Carlos Cornejo Visit Number: [id number] Discharge Date: ATTENTION: The Clinical Documentation Specialists (CDI) and [facility] Coding Staff appreciate your assistance in clarifying documentation. Please respond to the clarification below the line at the bottom and electronically sign. The CDI & [facility] Coding staff will review the response and follow-up if needed. Please note: Queries are made part of the Legal Health Record. If you have any questions, please contact the author of this message via ITS. Doctor/Provider: Travis Roblero MD: There is documentation of suspected gastroenteritis in the H&P 10/23. Additional clarification is requested. History/Risk Factors: 72-year-old male with a history of AFib, asthma, cancer and HTN who presents with a fever after long trip, near syncope and found to have UTI and possible gastroenteritis Clinical Indicators: 10/23 Triage VS: 132/77, 101.7, 91, 20, 94% room air 10/23 ED Clinical Impression: "Fever, Dehydration, Gastroenteritis, Near syncope, Atrial fibrillation with rapid ventricular response" 10/23 H&P, Assessment and Plan: "Fever: Dehydration: Suspected gastroenteritis: Hypotension: Presented with rigors, chills, hypotension, dehydrated. Could be heatstroke. Unknown source of fever." 10/24 IM PN, Assessment: Possible gastroenteritis" 10/23-10/25 WBC: 3.9, 11.5, 9.6, 6.8 Treatment: Normal Saline 1000cc bolus X4 on 10/23, then 130cc/hour 10/23-10/24 Flagyl 500mg PO TID start 10/23 Rocephin 2gram IV [id number] start 10/23 Can you please clarify the gastroenteritis? [ ] Non-infectious gastroenteritis [ x ] Infectious gastroenteritis [ ] Gastroenteritis ruled out [ ] Other, please specify [ ] Unable to determine MTDD
--- NOTE | 2023-10-26 13:23 | P.GSCN ---
History of Present Illness Consult date: 10/26/23 History of present illness: CHIEF COMPLAINT: Fever HISTORY OF PRESENT ILLNESS: This is a 72-year-old male who presented the hospital with complaints of fever and was found to have evidence of UTI. Patient also had A-fib with RVR and was seen by cardiology. Patient had a kidney and bladder ultrasound completed that reported gallbladder wall is edematous and there is trace fluid within the abdomen correlate for acute cholecystitis. Surgical service was consulted for abdominal pain and gallbladder wall thickening. Patient denies any abdominal pain. He is tolera ting diet. Denies any nausea or vomiting. Patient seen and examined with Dr. Valentine PAST MEDICAL HISTORY: Asthma, hypertension, atrial fibrillation, hypothyroidism, coronary disease PAST SURGICAL HISTORY: See below MEDICATIONS: See below ALLERGIES: See below SOCIAL HISTORY: No illicit drug use. REVIEW OF SYSTEMS: CONSTITUTIONAL: Denies fever or chills. HEENT: Denies blurred vision, vision changes, or eye pain. Denies hemoptysis CARDIOVASCULAR: Denies chest pain or pressure. RESPIRATORY: No shortness of breath. GASTROINTESTINAL: See HPI for pertinent findings HEMATOLOGIC: Denies bleeding disorders. GENITOURINARY: Denies any blood in urine or increased urinary frequency. SKIN: Denies pruitis. Denies rash. PHYSICAL EXAM: VITAL SIGNS: Reviewed GENERAL: Well-developed in no acute distress. HEENT: No sclera icterus. Extraocular movements grossly intact. Moist buccal mucosa. Head is atraumatic, normocephalic. No nasal drainage. ABDOMEN: Soft. Nondistended. Nontender NEUROLOGIC: Alert and oriented. Cranial nerves II through XII grossly intact. LABORATORY DATA: WBC 11.5 down to 6.8 Hgb 9.4 platelets 129 Sodium 140 potassium 3.5 creatinine 0.96 Total bili 2.8 down to 1.0 AST 57 ALT 38 alk phos 56 lipase 60 IMAGING: Kidney/bladder ultrasound reports bilateral renal cysts with no evidence of hydronephrosis or nephrolithiasis. The gallbladder wall is edematous and there is trace or fluid within the abdomen. Correlate for acute cholecystitis. ASSESSMENT: 1. Edematous gallbladder wall noted on ultrasound. Patient reports no abdominal pain. He has no right upper quadrant tenderness. And he is tolerating diet. 2. UTI PLAN: -No surgical intervention planned at this time -Recommend outpatient cholecystectomy -HIDA scan ordered. This can be done outpatient, if patient is discharged Thank you for this consultation Physician Clinical Secretary note has been reviewed by physician. Signing provider agrees with the documented findings, assessment, and plan of care. Past Medical History Past Medical History: Asthma, Cancer, Hypertension Additional Past Medical History / Comment(s): HX SKIN CA History of Any Multi-Drug Resistant Organisms: None Reported Past Surgical History: Orthopedic Surgery, Tonsillectomy Additional Past Surgical History / Comment(s): SKIN CA REMOVED, Past Anesthesia/Blood Transfusion Reactions: No Reported Reaction Date of Last Stent Placement:: 08/20/22 Smoking Status: Never smoker - Past Family History Mother Family Medical History: No Reported History Medications and Allergies Home Medications Medication Instructions Recorded Confirmed Type Vitamin B Complex 1 cap PO DAILY 05/12/22 10/24/23 History Apixaban [Eliquis] 5 mg PO BID #60 tab 05/14/22 10/24/23 Rx Cholecalciferol [Vitamin D3 (25 25 mcg PO DAILY 08/17/22 10/24/23 History Mcg = 1000 Iu)] Losartan Potassium [Cozaar] 50 mg PO DAILY 08/17/22 10/24/23 History Clopidogrel [Plavix] 75 mg PO DAILY 08/20/22 10/24/23 History Ascorbic Acid [Vitamin C] 500 mg PO DAILY 10/24/23 10/24/23 History Atorvastatin [Lipitor] 40 mg PO HS 10/24/23 10/24/23 History Calcium/Magnesium/Zinc 1 tab PO DAILY 10/24/23 10/24/23 History Levothyroxine Sodium [Synthroid] 50 mcg PO AC-BRKFST 10/24/23 10/24/23 History Metoprolol Succinate [Toprol XL] 75 mg PO DAILY 10/24/23 10/24/23 History Multivit-Mins/Iron/Folic/Lycop 1 tab PO DAILY 10/24/23 10/24/23 History [Centrum Men's Tablet] Pantoprazole [Protonix] 40 mg PO DAILY 10/24/23 10/24/23 History Sildenafil Citrate 100 mg PO Q72H PRN 10/24/23 10/24/23 History Allergies Allergy/AdvReac Type Severity Reaction Status Date / Time No Known Allergies Allergy Verified 10/24/23 08:59 Surgical - Exam Vital Signs Temp Pulse Resp BP Pulse Ox 101.7 F H 91 20 132/77 94 L 10/24/23 00:26 10/24/23 00:26 10/24/23 00:26 10/24/23 00:26 10/24/23 00:26 Results - Labs 10/26/23 07:10/26/23 07:26 Abnormal Lab Results - Last 24 Hours (Table) 10/26/23 10/26/23 Range/Units 07: 07:26 RBC 2.91 L (4.30-5.90) m/uL Hgb 9.4 L (13.0-17.5) gm/dL Hct 27.4 L (39.0-53.0) % Plt Count 129 L (150-450) k/uL Chloride 119 H (98-107) mmol/L Carbon Dioxide 18 L (22-30) mmol/L Calcium 6.9 L (8.4-10.2) mg/dL Microbiology - Last 24 Hours (Table) 10/24/23 01:15 Blood Culture - Preliminary Blood 10/24/23 01:00 Blood Culture - Preliminary Blood Diabetes panel 10/26/23 Range/Units 07:26 Sodium 140 (137-145) mmol/L Potassium 3.5 (3.5-5.1) mmol/L Chloride 119 H (98-107) mmol/L Carbon Dioxide 18 L (22-30) mmol/L BUN 11 (9-20) mg/dL Creatinine 0.96 (0.66-1.25) mg/dL Glucose 99 (74-99) mg/dL Calcium 6.9 L (8.4-10.2) mg/dL Calcium panel 10/26/23 Range/Units 07:26 Calcium 6.9 L (8.4-10.2) mg/dL Pituitary panel 10/26/23 Range/Units 07:26 Sodium 140 (137-145) mmol/L Potassium 3.5 (3.5-5.1) mmol/L Chloride 119 H (98-107) mmol/L Carbon Dioxide 18 L (22-30) mmol/L BUN 11 (9-20) mg/dL Creatinine 0.96 (0.66-1.25) mg/dL Glucose 99 (74-99) mg/dL Calcium 6.9 L (8.4-10.2) mg/dL Adrenal panel 07/23/24 Range/Units 07:26 Sodium 140 (137-145) mmol/L Potassium 3.5 (3.5-5.1) mmol/L Chloride 119 H (98-107) mmol/L Carbon Dioxide 18 L (22-30) mmol/L BUN 11 (9-20) mg/dL Creatinine 0.96 (0.66-1.25) mg/dL Glucose 99 (74-99) mg/dL Calcium 6.9 L (8.4-10.2) mg/dL
--- NOTE | 2023-10-26 13:52 | P.PN ---
Subjective Progress Note Date: 10/26/23 Principal diagnosis: Reason for follow-up is fever UTI and possible cholecystitis Patient is a 72-year-old male with a past medical history significant for hypertension asthma history of skin cancer patient presenting to the ER with rigors and chills also have some urinary symptoms did have a positive UA unfortunately no urine culture done by the ER physician with concern for UTI patient was admitted to hospital he also have ultrasound of the abdominal bladder completed today did not show any hydronephrosis nephrolithiasis but there was edematous and free fluid within abdomen concerning for acute cholecystitis for which General surgery was consulted On today's evaluation that is 10/26/2023, the patient did have resolution of his fever continues to be afebrile, the patient is on room air and breathing comfortably, the Pt denies having any chest pain or cough, the patient denies having any abdominal pain no vomiting or any diarrhea, patient mention to feel ing better wants to go home. Patient white count normalized to 6.8, creatinine 0.96 blood culture negative urine cultures pending Objective - Vital Signs Vital signs: Vital Signs Temp 98.2 F 10/26/23 08:19 Pulse 59 L 10/26/23 10:48 Resp 18 10/26/23 10:48 BP 123/74 10/26/23 08:19 Pulse Ox 99 10/26/23 08:19 FiO2 Intake & Output 10/25/23 10/26/23 10/26/23 18:59 06:59 18:59 Intake Total 450 540 118 Balance 450 540 118 Weight 88 kg Intake: Oral 450 540 118 Other: # Voids 3 2 - Exam GENERAL DESCRIPTION: An elderly male lying in bed in no distress RESPIRATORY SYSTEM: Unlabored breathing , decreased breath sounds at bases HEART: S1 S2 regular rate and rhythm , ABDOMEN: Soft , no tenderness EXTREMITIES: No edema feet - Labs CBC & Chem 7: 10/26/23 07:26 10/26/23 07:26 Labs: Abnormal Lab Results - Last 24 Hours (Table) 10/26/23 10/26/23 Range/Units 07:26 07:26 RBC 2.91 L (4.30-5.90) m/uL Hgb 9.4 L (13.0-17.5) gm/dL Hct 27.4 L (39.0-53.0) % Plt Count 129 L (150-450) k/uL Chloride 119 H (98-107) mmol/L Carbon Dioxide 18 L (22-30) mmol/L Calcium 6.9 L (8.4-10.2) mg/dL Microbiology - Last 24 Hours (Table) 10/24/23 01:15 Blood Culture - Preliminary Blood 10/24/23 01:00 Blood Culture - Preliminary Blood Assessment and Plan (1) UTI (urinary tract infection) Current Visit: Yes Status: Acute Code(s): N39.0 - URINARY TRACT INFECTION, SITE NOT SPECIFIED SNOMED Code(s): 84837650 Plan: 1patient presented to hospital with fever rigors and chills in this patient also having urinary burning and frequency source and likely UTI and likely from enteric gram-negative pathogen patient currently do not have any other obvious focus of infection 2-urine cultures pending ultrasound did not show any hydronephrosis or nephrolithiasis but concern for possible cholecystitis 3-patient has been eval by general surgery recommending no surgical treatment and have cleared the patient for discharge as reported by DISTILLERY MANAGER for covering admitting team we will suggest a 10-day course of oral Ceftin on discharge however the patient did advise if any worsening symptoms the need to go to the ER right away Dictation was produced using [employer] dictation software. please excuse any grammatical, word or spelling errors. Time with Patient: Less than 30
[2023-10-26 13:57] VITALS: BP 156/96; PULSE 57
[2023-10-26] MEDS ORDERED: ATORVASTATIN 40 MG TAB PO SCH (21:00)
--- NOTE | 2023-10-28 06:48 | P.DS ---
Providers Date of admission: 10/24/23 05:15 Expected date of discharge: 10/26/23 Attending physician: Pro Perry Consults: 10/24/23 12:03 Consult Physician Routine Consulting Provider: Gerry Stock Consult Reason/Comments: fever infectious disease unknown origin Do you want consulting provider notified?: Yes 10/26/23 10:14 Consult Physician Urgent Consulting Provider: Osmani Valentine Consult Reason/Comments: abd pain, gallbladder wall thickening? leonides? Do you want consulting provider notified?: Yes Primary care physician: Adryan Gardiner [facility] Course: Final diagnosis A-fib with RVR, currently rate controlled History of coronary artery disease Hypertension history, was hypotensive on admission, resolved Fever and dehydration, likely secondary to infectious gastroenteritis Dehydration: Suspected gastroenteritis: GI prophylaxis DVT prophylaxis. Full code Discharge disposition Patient is being discharged in a stable condition with guarded prognosis to home. Patient will follow-up with Dr. Gardiner in the outpatient setting upon discharge. Patient is to continue with antibiotics on discharge and close outpatient follow-up with general surgery as scheduled. Total time taken is greater than 35 minutes. Hospital course This is a 72year-old male who was recently admitted with weakness and fevers with nausea and vomiting being closely monitored. Likely infectious gastroenteritis although on imaging there is concern for gallbladder wall thickening. General surgery evaluated recommending outpatient follow-up to discuss the need for surgery or not. Patient also noted to be in atrial fibrillation with RVR and adjustments to medications made and cardiology has cleared the patient recommending outpatient follow-up. Patient reports to feeling significantly improved and would like to go home. Patient is adamant about going home and was told by general surgery gallbladder can be reassessed and evaluated outpatient. Please refer to other consultation notes for further HPI. Currently no reports of chest pain, shortness of breath, or palpitations. Patient is afebrile. No reports of nausea or vomiting and patient is tolerating diet. Patient will be discharged home today. Guarded prognosis and high risk for readmission Physical exam: Gen: This is a 72-year-old male who is awake, alert and oriented x 3, well- developed, well-built, elderly appearing HEENT: Head is atraumatic, normocephalic. Pupils equal, round. Sclerae is anicteric. NECK: Supple. No JVD. No lymphadenopathy. No thyromegaly. LUNGS: Clear to auscultation. No wheezes or rhonchi. No intercostal retractions. HEART: S1, S2 are muffled, irregular ABDOMEN: Soft. Bowel sounds are present. No masses. No tenderness. EXTREMITIES: No pedal edema. No calf tenderness. NEUROLOGICAL: Patient is awake, alert and oriented x3. Cranial nerves 2 through 12 are grossly intact. Please refer to medication reconciliation sheet for a list of medications. The impression and plan of care has been dictated by Hali Brown, Nurse Practitioner as directed. Dr. Emily MD I have performed a history and examination and MDM of this patient, discussed the same with the dictator, and agree with the dictator's assessment and plan as written ,documented as a scribe. Based on total visit time, I have performed more than 50% of the visit. Patient Condition at Discharge: Fair Plan - Discharge Summary Discharge Rx Participant: No New Discharge Prescriptions: New cefUROXime axetiL [Ceftin] 500 mg PO BID 10 Days #20 tab Acetaminophen Tab [Tylenol] 650 mg PO Q6HR PRN tab PRN Reason: Mild Pain Or Fever > 100.5 Continue Cholecalciferol [Vitamin D3 (25 Mcg = 1000 Iu)] 25 mcg PO DAILY Levothyroxine Sodium [Synthroid] 50 mcg PO AC-BRKFST Vitamin B Complex 1 cap PO DAILY Apixaban [Eliquis] 5 mg PO BID #60 tab Clopidogrel [Plavix] 75 mg PO DAILY Multivit-Mins/Iron/Folic/Lycop [Centrum Men's Tablet] 1 tab PO DAILY Atorvastatin [Lipitor] 40 mg PO HS Ascorbic Acid [Vitamin C] 500 mg PO DAILY Pantoprazole [Protonix] 40 mg PO DAILY Sildenafil Citrate 100 mg PO Q72H PRN PRN Reason: E.D. Calcium/Magnesium/Zinc 1 tab PO DAILY Discontinued Metoprolol Succinate [Toprol XL] 75 mg PO DAILY Losartan Potassium [Cozaar] 50 mg PO DAILY Discharge Medication List Vitamin B Complex 1 cap PO DAILY 05/12/22 [History] Apixaban [Eliquis] 5 mg PO BID #60 tab 05/14/22 [Rx] Cholecalciferol [Vitamin D3 (25 Mcg = 1000 Iu)] 25 mcg PO DAILY 08/17/22 [History] Clopidogrel [Plavix] 75 mg PO DAILY 08/20/22 [History] Ascorbic Acid [Vitamin C] 500 mg PO DAILY 10/24/23 [History] Atorvastatin [Lipitor] 40 mg PO HS 10/24/23 [History] Calcium/Magnesium/Zinc 1 tab PO DAILY 10/24/23 [History] Levothyroxine Sodium [Synthroid] 50 mcg PO AC-BRKFST 10/24/23 [History] Multivit-Mins/Iron/Folic/Lycop [Centrum Men's Tablet] 1 tab PO DAILY 10/24/23 [History] Pantoprazole [Protonix] 40 mg PO DAILY 10/24/23 [History] Sildenafil Citrate 100 mg PO Q72H PRN 10/24/23 [History] Acetaminophen Tab [Tylenol] 650 mg PO Q6HR PRN tab 10/26/23 [Rx] cefUROXime axetiL [Ceftin] 500 mg PO BID 10 Days #20 tab 10/26/23 [Rx] Follow up Appointment(s)/Referral(s): Adryan Gardiner DO [Primary Care Provider] - 1-2 days Osmani Valentine MD [STAFF PHYSICIAN] - 1 Week Patient Instructions/Handouts: Syncope (ED), Acute Nausea and Vomiting (ED) Activity/Diet/Wound Care/Special Instructions: Activity limited until follow-up Follow-up with primary care provider on discharge Follow-up with general surgery outpatient Continue taking antibiotics until finished Follow-up with cardiology outpatient Patient will need to be scheduled to undergo HIDA scan outpatient per surgery. Discharge Disposition: HOME SELF-CARE
== END 2023-10-26 15:13 | disposition home or self-care (01) | DRG 690 ==
LOC: EC 00:18 → 3SCARD 05:15
PROVIDERS: ADMIT Family Medicine; ATTEND Hospitalist
DX: N39.0 Urinary tract infection, site not specified (principal); N17.9 Acute kidney failure, unspecified; A09 Infectious gastroenteritis and colitis, unspecified; I25.10 Atherosclerotic heart disease of native coronary artery without angina pectoris; E86.0 Dehydration; I10 Essential (primary) hypertension; I48.0 Paroxysmal atrial fibrillation; J45.909 Unspecified asthma, uncomplicated; Z79.01 Long term (current) use of anticoagulants; E03.9 Hypothyroidism, unspecified; I95.9 Hypotension, unspecified; Z79.890 Hormone replacement therapy; B96.89 Other specified bacterial agents as the cause of diseases classified elsewhere; Z11.52 Encounter for screening for COVID-19; K59.00 Constipation, unspecified; K82.8 Other specified diseases of gallbladder; Z79.02 Long term (current) use of antithrombotics/antiplatelets; Z79.899 Other long term (current) drug therapy; Z85.828 Personal history of other malignant neoplasm of skin
CPT/HCPCS: 36415; 71046; 76770; 80048; 80053; 81001; 83605; 83690; 83735; 84100; 84484; 85025; 85027; 87040; 87086; 87636; 87651; 96361; 96365; 96366; 96367; 96375; 96376; 99291

== ENCOUNTER → 2023-11-16 | Outpatient (CLI) | payer MEDICARE, OTHER ==
--- NOTE | 2023-12-22 11:46 | NM ---
Site ID [facility] Patient Carlos Adan ID [id number] Order # EXAMINATION TYPE: NM hepatobiliary w CCK DATE OF EXAM: 11/18/2023 COMPARISON: NONE INDICATION: Abdominal pain TECHNIQUE: After the intravenous administration of 5.03 mCi Tc 99m Mebrofenin hepatobiliary scintigra phy is performed. Images were obtained immediately post injection. FINDINGS: There is prompt uptake and excretion of radiotracer by the liver. Extrahepatic ducts are identified at 4 minutes. The gallbladder is visualized within 8 minutes. Small bowel activity is noted within 8 minutes. At one hour CCK was administered, patient was injected with 0.59 mcg of Kinevac, and gallbladder ejec tion fraction is calculated at 49 %, which is in the normal range.. (Normal >35% and <80%.). IMPRESSION: 1. Normal hepatobiliary scan.
== END | disposition home or self-care (01) ==
LOC: RADNMMAIN 13:00
PROVIDERS: ATTEND Surgery
DX: R10.9 Unspecified abdominal pain (principal)
CPT/HCPCS: 78227; A9537; J2805

== ENCOUNTER 2024-07-21 22:19 | Observation (INO) | payer MEDICARE, OTHER ==
--- NOTE | 2024-07-21 22:30 | ED ---
General Adult HPI - General Stated complaint: Syncopal episode Time Seen by Provider: 07/21/24 22:20 Source: EMS Mode of arrival: EMS Limitations: no limitations - History of Present Illness Initial comments: Patient is a 73-year-old gentleman presenting today for syncope. Patient states he recently completed a 3-day road trip with his and returned today. They went to dinner this evening and around 6:00 he had 3 rum and Cokes. Just prior to arrival he had a syncopal episode witnessed by his . States he was in his white rocking chair, felt very hot and then lost consciousness for a few moments. States that his saw him leaning off to the side with his mouth open. He denies history of seizures. States he did have an episode of syncope about 3 years ago when he was first diagnosed with A-fib, required a cardiac stent at that time as well. - Related Data Home Medications Medication Instructions Recorded Confirmed Vitamin B Complex 1 cap PO DAILY 05/12/22 10/24/23 Cholecalciferol [Vitamin D3 (25 25 mcg PO DAILY 08/17/22 10/24/23 Mcg = 1000 Iu)] Clopidogrel [Plavix] 75 mg PO DAILY 08/20/22 10/24/23 Ascorbic Acid [Vitamin C] 500 mg PO DAILY 10/24/23 10/24/23 Atorvastatin [Lipitor] 40 mg PO HS 10/24/23 10/24/23 Calcium/Magnesium/Zinc 1 tab PO DAILY 10/24/23 10/24/23 Levothyroxine Sodium [Synthroid] 50 mcg PO AC-BRKFST 10/24/23 10/24/23 Multivit-Mins/Iron/Folic/Lycop 1 tab PO DAILY 10/24/23 10/24/23 [Centrum Men's Tablet] Pantoprazole [Protonix] 40 mg PO DAILY 10/24/23 10/24/23 Sildenafil Citrate 100 mg PO Q72H PRN 10/24/23 10/24/23 Previous Rx's Medication Instructions Recorded Apixaban [Eliquis] 5 mg PO BID #60 tab 05/14/22 Acetaminophen Tab [Tylenol] 650 mg PO Q6HR PRN tab 10/26/23 cefuroxime axetiL [Ceftin] 500 mg PO BID 10 Days #20 tab 10/26/23 Allergies Allergy/AdvReac Type Severity Reaction Status Date / Time No Known Allergies Allergy Verified 07/21/24 22:30 Review of Systems ROS Statement: Those systems with pertinent positive or pertinent negative responses have been documented in the HPI. ROS Other: All systems not noted in ROS Statement are negative. Past Medical History Past Medical History: Asthma, Cancer, Hypertension Additional Past Medical History / Comment(s): HX SKIN CA History of Any Multi-Drug Resistant Organisms: None Reported Past Surgical History: Orthopedic Surgery, Tonsillectomy Additional Past Surgical History / Comment(s): SKIN CA REMOVED, Past Anesthesia/Blood Transfusion Reactions: No Reported Reaction Date of Last Stent Placement:: 08/20/22 Past Psychological History: No Psychological Hx Reported Smoking Status: Never smoker - Past Family History Mother Family Medical History: No Reported History General Exam Limitations: no limitations Course Vital Signs 07/21/24 07/21/24 07/21/24 22:25 23:20 23:32 Temperature 97.2 F L Pulse Rate 56 L 55 L Pulse Rate [ 59 L Sitting Restrictive Preparation Operator] Pulse Rate [ 66 Standing Pulse Oximetery] Pulse Rate [ 56 L Supine Restrictive Preparation Operator] Respiratory 18 18 16 Rate Blood Pressure 146/90 129/86 Blood Pressure 130/84 [Left Arm Supine] Blood Pressure 128/95 [Right Arm Sitting] Blood Pressure 123/84 [Right Arm Standing] O2 Sat by Pulse 100 95 100 Oximetry 07/22/24 00:30 Temperature Pulse Rate 54 L Pulse Rate [ Sitting Restrictive Preparation Operator] Pulse Rate [ Standing Pulse Oximetery] Pulse Rate [ Supine Restrictive Preparation Operator] Respiratory 18 Rate Blood Pressure 143/92 Blood Pressure [Left Arm Supine] Blood Pressure [Right Arm Sitting] Blood Pressure [Right Arm Standing] O2 Sat by Pulse 99 Oximetry EKG Findings - EKG Comments: EKG Findings:: EKG #1, sinus bradycardia with first-degree AV block, rate 55 bpm. 244 ms QT/QTc 501/490 ms, normal axis, question [address] elevation in lead V3, no reciprocal depressions, prolonged QT interval. EKG obtained at 2249. Does not show any new ST ST elevations or depressions when compared to prior, court in sinus bradycardia rate 57 bpm ND interval 243, QT/QTc 482/472, normal axis, question [address] elevation in lead V3 without reciprocal depressions no significant changes from initial EKG Medical Decision Making - Medical Decision Making Was pt. sent in by a medical professional or institution (ROMEO Rebollar, DRUG ABUSE SOCIAL WORKER, urgent care, hospital, or prison...) When possible be specific @ -[No] Did you speak to anyone other than the patient for history (EMS, parent, family, police, friend...)? What history was obtained from this source @ -Spoke with EMS personnel, who state patient was hypotensive on arrival with blood pressure 70/40, increased to 130 systolic after 3 to 50 cc cc fluid Did you review nursing and triage notes (agree or disagree)? Why? @ -[I reviewed and agree with nursing and triage notes] Were old charts reviewed (outside hosp., previous admission, EMS record, old EKG, old radiological studies, urgent care reports/EKG's, prison records)? Report findings @ -[Medical records reviewed]Reviewed ED visit from 10/24/2023, it appears patient had a near syncopal event after recent road trip at that time though did have a fever at that point, ultimately he was admitted Differential Diagnosis (chest pain, altered mental status, abdominal pain women, abdominal pain men, vaginal bleeding, weakness, fever, dyspnea, syncope, hea dache, dizziness, GI bleed, back pain, seizure, CVA, palpatations, mental health, musculoskeletal)? Differential Syncope: Valvular disease, hypertrophic cardiomyopathy, pulmonary embolism, tamponade, tachycardia, bradycardia, [place], hypovolemia, hemorrhage, dissection, anemia, intracranial hemorrhage, seizure, hypoglycemia, carbon monoxide poisoning, this is not meant to be an all-inclusive list. EKG interpreted by me (3pts min.). @ -[As above] X-rays interpreted by me (1pt min.). @ -[None done] CT interpreted by me (1pt min.). @ -[None done] U/S interpreted by me (1pt. min.). @ -[None done] What testing was considered but not performed or refused? (CT, X-rays, U/S, labs)? Why? @ -[None] What meds were considered but not given or refused? Why? @ -[None] Did you discuss the management of the patient with other professionals (professionals i.e. ROMEO Rebollar, DRUG ABUSE SOCIAL WORKER, lab, RT, psych nurse, social science instructor, loom blower, teacher, weapons officer, case fitter)? Give summary @ -[No] Was smoking cessation discussed for >3mins.? @ -[No] Was critical care preformed (if so, how long)? @ -[No] Were there social determinants of health that impacted care today? How? (Homelessness, low income, unemployed, alcoholism, drug addiction, transportation, low edu. Level, literacy, decrease access to med. care, custodial, re hab)? @ -[No] Was there de-escalation of care discussed even if they declined (Discuss DNR or withdrawal of care, Hospice)? @ -[No] What co-morbidities impacted this encounter? (DM, HTN, Smoking, COPD, CAD, Cancer, CVA, ARF, Chemo, Hep., AIDS, mental health diagnosis, sleep apnea, morbid obesity)? @ -[None] Was patient admitted / discharged? Hospital course, mention meds given and route, prescriptions, significant lab abnormalities, going to OR and other pertinent info. @ -[hospital course] this is a 73-year-old gentleman presenting today for syncope without prodrome. EKGs were transmitted via EMS out of concern for STEMI however these were reviewed did not show signs of a STEMI. EKG here showed questionable [address] elevation in lead V3 without additional ST elevations and questioned Wellens pattern in lead II. For this reason I called Dr. Nichole, cardiology who reviewed EKG and recommended repeat EKG, current EKG not consistent with Wellen's /stemi. Additionally, obtained cardiac labs, and given recent long distance travel and syncope, ordered CTA chest. Undiagnosed new problem with uncertain prognosis? @ -[No] Drug Therapy requiring intensive monitoring for toxicity (Heparin, Nitro, Insulin, Cardizem)? @ -[No] Were any procedures done? @ -[No] Diagnosis/symptom? @ -[default] Acute, or Chronic, or Acute on Chronic? @ -[default] Uncomplicated (without systemic symptoms) or Complicated (systemic symptoms)? @ -[default] Side effects of treatment? @ -[No] Exacerbation, Progression, or Severe Exacerbation? @ -[No] Poses a threat to life or bodily function? How? (Chest pain, [place], [place], pneumonia, PE, COPD, DKA, ARF, appy, cholecystitis, CVA, Diverticulitis, Homicidal, Joie cidal, threat to staff... and all critical care pts) @ -[No] - Lab Data Result diagrams: 07/21/24 23:03 07/21/24 23:03 Lab Results 07/21/24 07/21/24 07/21/24 Range/Units 23:03 23:03 23:03 WBC 6.28 (4.50-10.00) 10*3/uL RBC 3.92 L (4.40-5.60) 10*6/uL Hgb 11.8 L (13.0-17.0) g/dL Hct 34.7 L (39.6-50.0) % MCV 88.5 (80.0-97.0) fL MCH 30.1 (27.0-32.0) pg MCHC 34.0 (32.0-37.0) g/dL Plt Count 130 L (140-440) 10*3/uL MPV 10.7 (9.5-12.2) fL Immature Gran % (Auto) 0.2 % Neutrophils % 41.9 % Lymphocytes % 47.3 % Monocytes % 6.5 % Eosinophils % 3.0 % Basophils % 1.1 % Immature Gran # 0.01 (0.00-0.04) 10*3/uL Neutrophils # 2.63 (1.80-7.70) 10*3/uL Lymphocytes # 2.97 (0.90-5.00) 10*3/uL Monocytes # 0.41 (0.20-1.00) 10*3/uL Eosinophils # 0.19 (0.04-0.35) 10*3/uL Basophils # 0.07 (0.00-0.10) 10*3/uL PT 11.2 (10.0-12.5) sec INR 1.0 (<1.2) APTT 22.3 (22.0-30.0) sec Sodium 138 (137-145) mmol/L Potassium 3.6 (3.5-5.1) mmol/L Chloride 103 (98-107) mmol/L Carbon Dioxide 29 (22-30) mmol/L Anion Gap 6 mmol/L BUN 23 H (9-20) mg/dL Creatinine 1.30 H (0.66-1.25) mg/dL Est GFR (CKD-EPI)AfAm 62 (>60 ml/min/1.73 sqM) Est GFR (CKD-EPI)NonAf 54 (>60 ml/min/1.73 sqM) Glucose 151 H (74-99) mg/dL Calcium 9.2 (8.4-10.2) mg/dL Magnesium 2.0 (1.6-2.3) mg/dL Total Bilirubin 1.7 H (0.2-1.3) mg/dL AST 42 (17-59) U/L ALT 60 H (4-49) U/L Alkaline Phosphatase 79 (38-126) U/L Troponin I (0.000-0.034) ng/mL Total Protein 6.3 (6.3-8.2) g/dL Albumin 3.8 (3.5-5.0) g/dL 07/21/24 Range/Units 23:03 WBC (4.50-10.00) 10*3/uL RBC (4.40-5.60) 10*6/uL Hgb (13.0-17.0) g/dL Hct (39.6-50.0) % MCV (80.0-97.0) fL MCH (27.0-32.0) pg MCHC (32.0-37.0) g/dL Plt Count (140-440) 10*3/uL MPV (9.5-12.2) fL Immature Gran % (Auto) % Neutrophils % % Lymphocytes % % Monocytes % % Eosinophils % % Basophils % % Immature Gran # (0.00-0.04) 10*3/uL Neutrophils # (1.80-7.70) 10*3/uL Lymphocytes # (0.90-5.00) 10*3/uL Monocytes # (0.20-1.00) 10*3/uL Eosinophils # (0.04-0.35) 10*3/uL Basophils # (0.00-0.10) 10*3/uL PT (10.0-12.5) sec INR (<1.2) APTT (22.0-30.0) sec Sodium (137-145) mmol/L Potassium (3.5-5.1) mmol/L Chloride (98-107) mmol/L Carbon Dioxide (22-30) mmol/L Anion Gap mmol/L BUN (9-20) mg/dL Creatinine (0.66-1.25) mg/dL Est GFR (CKD-EPI)AfAm (>60 ml/min/1.73 sqM) Est GFR (CKD-EPI)NonAf (>60 ml/min/1.73 sqM) Glucose (74-99) mg/dL Calcium (8.4-10.2) mg/dL Magnesium (1.6-2.3) mg/dL Total Bilirubin (0.2-1.3) mg/dL AST (17-59) U/L ALT (4-49) U/L Alkaline Phosphatase (38-126) U/L Troponin I <0.012 (0.000-0.034) ng/mL Total Protein (6.3-8.2) g/dL Albumin (3.5-5.0) g/dL Disposition Clinical Impression: Syncope, MERLINE (acute kidney injury) Disposition: ADMITTED IP TO THIS [facility] Condition: Stable Referrals: None,Stated [REFERRING] - 1-2 days
[2024-07-21 23:07] LABS: Basophils # (A) 0.07 10*3/uL (0.00-0.10); Basophils % (A) 1.1 %; Eosinophils # (A) 0.19 10*3/uL (0.04-0.35); HCT 34.7 % (39.6-50.0); HGB 11.8 g/dL (13.0-17.0); Lymphocytes # (A) 2.97 10*3/uL (0.90-5.00); Lymphocytes % (A) 47.3 %; MCH 30.1 pg (27.0-32.0); MCV 88.5 fL (80.0-97.0); Mean Platelet Volume 10.7 fL (9.5-12.2); Monocytes # (A) 0.41 10*3/uL (0.20-1.00); Monocytes % (A) 6.5 %; Neutrophils # (A) 2.63 10*3/uL (1.80-7.70); Neutrophils % (A) 41.9 %; Platelet Count 130 10*3/uL (140-440); RBC 3.92 10*6/uL (4.40-5.60); RDW 13.7 % (11.5-14.5); WBC 6.28 10*3/uL (4.50-10.00)
[2024-07-21 23:25] LABS: Partial Thromboplastin Time 22.3 sec (22.0-30.0); Prothrombin Time 11.2 sec (10.0-12.5)
[2024-07-21] MEDS: SODIUM CHLORIDE 0.9% 500 ML 500 ML IV ONE (23:45)
[2024-07-22 00:13] LABS: ALT 60 U/L (4-49); AST 42 U/L (17-59); African American GFR (CKD) 62 (>60 ml/min/1.73 sqM); Albumin 3.8 g/dL (3.5-5.0); Alkaline Phosphatase 79 U/L (38-126); Anion Gap 6 mmol/L; Blood Urea Nitrogen 23 mg/dL (9-20); Calcium 9.2 mg/dL (8.4-10.2); Carbon Dioxide 29 mmol/L (22-30); Chloride 103 mmol/L (98-107); Glucose 151 mg/dL (74-99); Non-African American GFR(CKD) 54 (>60 ml/min/1.73 sqM); Potassium 3.6 mmol/L (3.5-5.1); Sodium 138 mmol/L (137-145); Total Bilirubin 1.7 mg/dL (0.2-1.3); Total Protein 6.3 g/dL (6.3-8.2)
[2024-07-22] MEDS ORDERED: ACETAMINOPHEN TAB 325 MG TAB PO PRN (04:13)
[2024-07-22] MEDS ORDERED: MAG HYDROX/AL HYDROX/SIMETH 30 ML CUP PO PRN (04:13)
[2024-07-22] MEDS ORDERED: NALOXONE 0.4 MG/ML 1 ML VIAL IV PRN (04:13)
[2024-07-22] MEDS ORDERED: CALCIUM CARBONATE 500 MG CHEWABLE PO PRN (04:13)
[2024-07-22] MEDS ORDERED: traMADol 50 MG TAB PO PRN (04:13)
[2024-07-22] MEDS: LEVOTHYROXINE 50 MCG TAB PO SCH (06:08)
[2024-07-22] MEDS: SODIUM CHLORIDE 0.9% 1,000 ML IV SCH (06:15)
[2024-07-22 07:53] VITALS: BP 160/87; PULSE 54; RESP 16; TEMP 97.5
[2024-07-22] MEDS: APIXABAN 5 MG TAB PO SCH (08:11)
[2024-07-22] MEDS: CLOPIDOGREL 75 MG TAB PO SCH (08:11)
[2024-07-22] MEDS: FAMOTIDINE 20 MG TAB PO SCH (08:11)
--- NOTE | 2024-07-22 09:23 | P.CRDCN ---
History of Present Illness Consult date: 07/22/24 Reason for Consult (text): Syncope History of present illness: This is a 73-year-old male patient of Dr. Wong with past medical history of cor onary artery disease status post PCI, paroxysmal atrial fibrillation on Eliquis, syncope with loop recorder in place, hypertension, hyperlipidemia, mild dementia. We have been asked to evaluate the patient for syncope. Patient recently completed a 3-day road trip with his and returned yesterday. They had dinner and then he had 3 rum and Cokes. Patient's gives history that he was sitting in chair and he started sweating profusely while standing and then sat down and then his head went back and his eyes rolled back in his head. EMS was called and they had difficulty getting his BP and his pulseox was low according to his . Patient does not remember passing out but saew that he did. It lasted for a few moments. He denies having chest pain or pressure and no shortness of breath. He had a similar episode about 3 years ago when he was first diagnosed with atrial fibrillation. This felt similar to the past episode except that he could tell he was not in afib. While on vacation, he did have one day when he could feel he was in afib and heart rate was fast. Blood pressure 160/87, heart rate in the 50s, pulse ox 100% on room air. Orthostatic vital signs checked last evening were negative. Patient was last seen in the office on 05/08/2024 at that time loop interrogation revealed atrial fibrillation burden of 6.2% with some brief tacky episodes. He was to return in 6 months to be seen by Dr. Cheek. No medication changes were made. -EKG: Sinus bradycardia with first-degree AV block, right bundle branch block -CTA chest: Report is pending. -Laboratory studies: WBC 6.2, hemoglobin 11.8. Electrolytes are normal. BUN 23 creatinine 1.3. Troponin negative x 3. Glucose 151. Magnesium 2.0. ALT 60. -Home cardiac medications: Based on office note dated 05/08/2024: Plavix 75 mg daily, Eliquis 5 mg twice daily, Lipitor 40 mg daily, metoprolol succinate 25 mg daily, also on levothyroxine. -Cardiac catheterization performed 08/20/2022 revealed right dominant system, 35% RCA disease. No gradient in the left main, circumflex, LAD with minor irregularities, ramus intermedius with 85 to 90% stenosis status post PCI with KARLA. -Sara scan Cardiolite stress test performed in the office revealed unremarkable Lexiscan stress test by EKG criteria with underlying right bundle branch block without ST segment changes. Probable diaphragmatic attenuation, no ischemia, normal EF. -Loop recorder [employer] placed 06/11/2022 -Event monitor 06/01/2022 revealed sinus rhythm, sinus bradycardia and occasional IVCD. -Echocardiogram performed at [facility] 05/13/2022: EF 55 to 60%. Mild mitral and tricuspid regurgitation. Mild aortic regurgitation. Review Of Systems: At the time of my exam: CONSTITUTIONAL: Denies fever or chills. HEENT: Denies blurred vision, vision changes, or eye pain. Denies hemoptysis CARDIOVASCULAR: Denies chest pain. Denies orthopnea. Denies PND. Denies palpitations RESPIRATORY: Denies shortness of breath. GASTROINTESTINAL: Denies abdominal pain. Denies nausea or vomiting. HEMATOLOGIC: Denies bleeding disorders. GENITOURINARY: Denies any blood in urine. SKIN: Denies puritis. Denies rash. Physical examination: Gen: This is a 73-year-old male in no acute distress. VS: reviewed HEENT: Head is atraumatic, normocephalic. Pupils equal, round. Sclerae is anicteric. NECK: Supple. No JVD. LUNGS: Clear to auscultation. No wheezes or rhonchi. No intercostal retractions. HEART: Regular rate and rhythm. No murmur. ABDOMEN: Soft No tenderness. EXTREMITIES: No pedal edema. No calf tenderness. NEUROLOGICAL: Patient is awake, alert and oriented x3. Assessment: Syncopal episode most likely vasovagal episode with alcohol intake as contributing factor Paroxysmal atrial fibrillation currently in sinus rhythm Coronary artery disease with PCI of the ramus intermedius 08/20/2022 Hypertension Hyperlipidemia Mild dementia Plan: Resume patient's home cardiac medications including metoprolol Discontinue Plavix at discharge. Loop recorder interrogation Obtain 2-D echocardiogram and Doppler study to assess cardiac structure and function If echocardiogram, loop recorder are unremarkable, patient is cleared for discharge Patient's nurse to call regarding the CTA report Thank you kindly for this consultation. Nurse practitioner note has been reviewed, I agree with documented findings and plan of care. Patient was seen and examined. Past Medical History Past Medical History: Atrial Fibrillation, Asthma, Cancer, Hyperlipidemia, Hypertension, Syncope, Thyroid Disorder Additional Past Medical History / Comment(s): HX SKIN CA History of Any Multi-Drug Resistant Organisms: None Reported Past Surgical History: Heart Catheterization With Stent, Hernia Repair, Orthopedic Surgery, Tonsillectomy Additional Past Surgical History / Comment(s): SKIN CA REMOVED, heart cath with one stent 08/20/2022, loop recorder Past Anesthesia/Blood Transfusion Reactions: No Reported Reaction Date of Last Stent Placement:: 08/20/22 Past Psychological History: No Psychological Hx Reported Smoking Status: Never smoker Past Alcohol Use History: Occasional Additional Past Alcohol Use History / Comment(s): drinks 2-3 times a week 1-2 rum mixed drink Past Drug Use History: None Reported - Past Family History Mother Family Medical History: No Reported History Medications and Allergies Home Medications Medication Instructions Recorded Confirmed Type Vitamin B Complex 1 cap PO DAILY 05/12/22 10/24/23 History Apixaban [Eliquis] 5 mg PO BID #60 tab 05/14/22 10/24/23 Rx Cholecalciferol [Vitamin D3 (25 25 mcg PO DAILY 08/17/22 10/24/23 History Mcg = 1000 Iu)] Clopidogrel [Plavix] 75 mg PO DAILY 08/20/22 10/24/23 History Ascorbic Acid [Vitamin C] 500 mg PO DAILY 10/24/23 10/24/23 History Atorvastatin [Lipitor] 40 mg PO HS 10/24/23 10/24/23 History Calcium/Magnesium/Zinc 1 tab PO DAILY 10/24/23 10/24/23 History Levothyroxine Sodium [Synthroid] 50 mcg PO AC-BRKFST 10/24/23 10/24/23 History Multivit-Mins/Iron/Folic/Lycop 1 tab PO DAILY 10/24/23 10/24/23 History [Centrum Men's Tablet] Pantoprazole [Protonix] 40 mg PO DAILY 10/24/23 10/24/23 History Sildenafil Citrate 100 mg PO Q72H PRN 10/24/23 10/24/23 History Acetaminophen Tab [Tylenol] 650 mg PO Q6HR PRN tab 10/26/23 Rx cefuroxime axetiL [Ceftin] 500 mg PO BID 10 Days #20 tab 10/26/23 Rx Allergies Allergy/AdvReac Type Severity Reaction Status Date / Time No Known Allergies Allergy Verified 07/21/24 22:30 Physical Exam Vitals: Vital Signs Temp Pulse Pulse Pulse Pulse Pulse Resp 07/22/24 07:30 97.5 F L 54 L 16 07/22/24 05:55 97.7 F 53 L 18 07/22/24 04:48 52 L 16 07/22/24 00:30 54 L 18 07/21/24 23:32 59 L 66 56 L 16 07/21/24 23:20 55 L 18 07/21/24 22:25 97.2 F L 56 L 18 BP BP BP BP BP Pulse Ox 07/22/24 07:30 160/87 100 07/22/24 05:55 144/91 99 07/22/24 04:48 118/83 95 07/22/24 00:30 143/92 99 07/21/24 23:32 130/84 128/95 123/84 100 07/21/24 23:20 129/86 95 07/21/24 22:25 146/90 100 Intake and Output 07/21/24 07/22/24 07/22/24 22:59 06:59 14:59 Other: # Voids 1 Weight 77.111 kg 77.111 kg Results 07/21/24 23:03 07/21/24 23:03 Cardiac Enzymes 07/21/24 07/21/24 07/22/24 Range/Units 23:03 23:03 03:33 AST 42 (17-59) U/L Troponin I <0.012 <0.012 (0.000-0.034) ng/mL 07/22/24 Range/Units 06:43 AST (17-59) U/L Troponin I <0.012 (0.000-0.034) ng/mL Coagulation 07/21/24 Range/Units 23:03 PT 11.2 (10.0-12.5) sec APTT 22.3 (22.0-30.0) sec CBC 07/21/24 Range/Units 23:03 WBC 6.28 (4.50-10.00) 10*3/uL RBC 3.92 L (4.40-5.60) 10*6/uL Hgb 11.8 L (13.0-17.0) g/dL Hct 34.7 L (39.6-50.0) % Plt Count 130 L (140-440) 10*3/uL Comprehensive Metabolic Panel 07/21/24 Range/Units 23:03 Sodium 138 (137-145) mmol/L Potassium 3.6 (3.5-5.1) mmol/L Chloride 103 (98-107) mmol/L Carbon Dioxide 29 (22-30) mmol/L BUN 23 H (9-20) mg/dL Creatinine 1.30 H (0.66-1.25) mg/dL Glucose 151 H (74-99) mg/dL Calcium 9.2 (8.4-10.2) mg/dL AST 42 (17-59) U/L ALT 60 H (4-49) U/L Alkaline Phosphatase 79 (38-126) U/L Total Protein 6.3 (6.3-8.2) g/dL Albumin 3.8 (3.5-5.0) g/dL Current Medications Generic Name Dose Route Start Last Admin Trade Name Freq PRN Reason Stop Dose Admin Acetaminophen 650 mg 07/22/24 04:13 Acetaminophen Tab 325 Mg Tab PO Q6HR PRN Mild Pain or Fever > 100.5 Al Hydroxide/Mg Hydroxide 15 ml 07/22/24 04:13 Mag Hydrox/Al Hydrox/Simeth 30 Ml Cup PO Q6HR PRN Indigestion Apixaban 5 mg 07/22/24 09:00 Apixaban 5 Mg Tab PO BID YOSHI Protocol Atorvastatin Calcium 40 mg 07/22/24 21:00 Atorvastatin 40 Mg Tab PO HS [facility] Calcium Carbonate/Glycine 1,000 mg 07/22/24 04:13 Calcium Carbonate 500 Mg Chewable PO Q4HR PRN Dyspepsia Clopidogrel Bisulfate 75 mg 07/22/24 09:00 Clopidogrel 75 Mg Tab PO DAILY YOSHI Famotidine 20 mg 07/22/24 09:00 Famotidine 20 Mg Tab PO DAILY YOSHI Sodium Chloride 1,000 mls @ 75 mls/hr 07/22/24 04:15 07/22/24 06:15 Saline 0.9% IV 75 mls/hr .[id number] YOSHI Administration Levothyroxine Sodium 50 mcg 07/22/24 06:00 07/22/24 06:08 Levothyroxine 50 Mcg Tab PO 50 mcg DAILY@0600 YOSHI Administration Naloxone HCl 0.2 mg 07/22/24 04:13 Naloxone 0.4 Mg/Ml 1 Ml Vial IV Q2M PRN Opioid Reversal Tramadol HCl 50 mg 07/22/24 04:13 Tramadol 50 Mg Tab PO Q6H PRN Moderate Pain (Scale 4 to 6) Intake and Output 07/21/24 07/22/24 07/22/24 22:59 06:59 14:59 Other: # Voids 1 Weight 77.111 kg 77.111 kg 07/21/24 23:03 07/21/24 23:03
--- NOTE | 2024-07-22 13:00 | CA ---
Transthoracic Echo Report Name: Carlos Cornejo Age: 73 Gender: M : 1950 Exam Date: 07/22/2024 09:57 Exam Location: [facility] Ht (in): 74 Wt (lb): 170 Ordering Physician: Tammy Randolph Attending/Referring Phys: Spectrographic Analyst Jessi Lala RDCS Procedure CPT: Indications: LVF Cardiac Hx: Technical Quality: Good Contrast 1: Total Dose (mL): Contrast 2: Total Dose (mL): MEASUREMENTS (Male / Female) Normal Values 2D ECHO LV Diastolic Diameter PLAX 5.3 cm 4.2 - 5.9 / 3.9 - 5.3 cm LV Systolic Diameter PLAX 3.3 cm IVS Diastolic Thickness 0.9 cm 0.6 - 1.0 / 0.6 - 0.9 cm LVPW Diastolic Thickness 0.8 cm 0.6 - 1.0 / 0.6 - 0.9 cm LV Relative Wall Thickness 0.3 LVOT Diameter 2.4 cm LV Diastolic Volume MOD BP 122.5 cm??? 67 - 155 / 56 - 104 cm??? LV Systolic Volume MOD BP 52.1 cm??? 22 - 58 / 19 - 49 cm??? LV Ejection Fraction MOD BP 57.5 % >= 55 % LV Cardiac Index MOD BP 1934.5 cm???/min???m??? LV Diastolic Volume MOD 4C 118.2 cm??? LV Systolic Volume MOD 4C 46.5 cm??? LV Ejection Fraction MOD 4C 60.6 % LV Cardiac Index MOD 4C 1970.1 cm???/min???m??? LV Diastolic Length 4C 9.7 cm LV Systolic Length 4C 7.6 cm LV Diastolic Volume MOD 2C 126.2 cm??? LV Systolic Volume MOD 2C 53.6 cm??? LV Ejection Fraction MOD 2C 57.5 % LV Cardiac Index MOD 2C 1995.1 cm???/min???m??? LV Diastolic Length 2C 9.6 cm LV Systolic Length 2C 8.3 cm LA Volume 56.4 cm??? 18 - 58 / 22 - 52 cm??? LA Volume Index 28.2 cm???/m??? 16 - 28 cm???/m??? DOPPLER AV Peak Velocity 159.0 cm/s AV Peak Gradient 10.1 mmHg AV Mean Velocity 104.2 cm/s AV Mean Gradient 5.0 mmHg AV Velocity Time Integral 34.3 cm LVOT Peak Velocity 133.1 cm/s LVOT Peak Gradient 7.1 mmHg LVOT Velocity Time Integral 28.4 cm LVOT Stroke Volume 127.6 cm??? LVOT Stroke Volume Index 62.9 ml/m??? LVOT Cardiac Index 3507.2 cm???/min???m??? AV Area Cont Eq vti 3.7 cm??? AV Area Cont Eq pk 3.8 cm??? MV Peak Velocity 121.9 cm/s MV Peak Gradient 5.9 mmHg MV Mean Velocity 62.9 cm/s MV Mean Gradient 1.8 mmHg MV Velocity Time Integral 38.0 cm MV Area PHT 2.7 cm??? Mitral E Point Velocity 69.6 cm/s Mitral A Point Velocity 83.1 cm/s Mitral E to A Ratio 0.8 MV Deceleration Time 282.9 ms TR Peak Velocity 268.2 cm/s TR Peak Gradient 28.8 mmHg Right Atrial Pressure 5.0 mmHg Pulmonary Artery Systolic Pressu 33.8 mmHg Right Ventricular Systolic Press 33.8 mmHg PV Peak Velocity 93.4 cm/s PV Peak Gradient 3.5 mmHg FINDINGS Left Ventricle Left ventricular ejection fraction is estimated at 55-60 %. Left ventricular cavity size normal. Left ventricular wall thickness normal. No obvious regional wall motion abnormalities. Right Ventricle Moderate right ventricular dilatation. Normal right ventricular global systolic function. Right ventricular systolic pressure within normal limits. Right Atrium Moderate right atrial dilatation. Left Atrium Normal left atrial size. Mitral Valve Structurally normal mitral valve. Mild mitral annular calcification. No evidence for mitral valve prolapse. No mitral stenosis. Mild mitral regurgitation. Aortic Valve Trileaflet aortic valve. No aortic stenosis. Trace aortic regurgitation. Tricuspid Valve Structurally normal tricuspid valve. No tricuspid stenosis. Mild tricuspid regurgitation. Pulmonic Valve Structurally normal pulmonic valve. No pulmonic stenosis. No pulmonic regurgitation. Pericardium No pericardial effusion. Aorta Mild aortic dilatation at the level of the sinuses of valsalva (root). Ascending aorta normal. CONCLUSIONS Left ventricular ejection fraction 55 to 60% RVSP 33 Mild mitral regurgitation Mild tricuspid regurgitation No pericardial effusion Previewed by: Dr. Ramin Nichole DO (Electronically Signed) Final Date: 22 July 2024 12:59
[2024-07-22] MEDS: METOPROLOL SUCCINATE (ER) 25 MG TAB.ER.24H PO SCH (13:04)
--- NOTE | 2024-07-22 13:15 | P.HPIM ---
History of Present Illness H&P Date: 07/22/24 History of present illness: 73-year-old male patient with past medical significant for coronary artery disease status post PCI, paroxysmal atrial fibrillation on Eliquis, history of syncope with loop recorder in place, hypertension, hyperlipidemia, mild dementia who presented to ER with a complaint of syncope. Patient recently completed [address] of a road trip with his and returned 1 day before presenting to ED, patient had dinner and had 3 g and Cokes. Patient was sitting in chair and started to have sweating while standing then sat down, patient briefly passed out. EMS was called and patient blood pressure and pulse ox was found to be low. Patient on and off remember passing out, and denied tongue bite, loss of bowel or bladder control or body stiffness of jerky movements of the ex tremities. EKG showed sinus bradycardia with first-degree AV block, right bundle block from, CTA chest was negative for acute process. WBC 6.2, hemoglobin 11.8 platelet 130. INR 1.0. BMP was unremarkable except BUN 23, creatinine 1.30. Troponin negative x 3. Assessment and plan: Syncopelikely vasovagal, with alcohol intake contributing factor Paroxysmal atrial fibrillation Coronary artery disease with PCI of ramus intermedius 08/20/2022 Hypertension Hyperlipidemia Mild dementia Plan: Continue patient's home medication Monitor with serial EKG and troponin Loop recorder interrogation Echocardiogram Cardiology consult Monitor vital signs and labs Labs and medication were reviewed. Continue same treatment. Further recommendations as per clinical course of the patient PHYSICAL EXAMINATION: GENERAL: The patient is A&O x3, NAD HEENT: EOMI, Sclerae anicteric, Moist Mucous membranes Neck: Supple, Non tender, No JVD PULMONARY: Equal breath souds B/L, No wheezing, No crackles. CARDIOVASCULAR: S1, S2 present. No murmurs, rubs, or gallops. ABDOMEN: Soft, nontender, nondistended, normoactive bowel sounds. No guarding or rebound tenderness. MUSCULOSKELETAL: No edema, No cyanosis. No clubbing. Normal ROM. Intact peripheral pulses. NEUROLOGICAL: CN 2-12 grossly intact. No FND REVIEW OF SYSTEMS: CONSTITUTIONAL: No fever, no malaise, no fatigue. HEENT: No recent visual problems or hearing problems. Denied any sore throat. CARDIOVASCULAR: No chest pain, orthopnea, PND, no palpitations, no syncope. PULMONARY: No shortness of breath, no cough, no hemoptysis. GASTROINTESTINAL: No diarrhea, no nausea, no vomiting, no abdominal pain. NEUROLOGICAL: No headaches, no weakness, no numbness. HEMATOLOGICAL: Denies any bleeding or petechiae. GENITOURINARY: Denies any burning micturition, frequency, or urgency. MUSCULOSKELETAL/RHEUMATOLOGICAL: Denies any joint pain, swelling, or any muscle pain. ENDOCRINE: Denies any polyuria or polydipsia. The rest of the 14-point review of systems is negative. Dictation was produced using [employer] software. please excuse any grammatical, word or spelling errors. Past Medical History Past Medical History: Atrial Fibrillation, Asthma, Cancer, Hyperlipidemia, Hypertension, Syncope, Thyroid Disorder Additional Past Medical History / Comment(s): HX SKIN CA History of Any Multi-Drug Resistant Organisms: None Reported Past Surgical History: Heart Catheterization With Stent, Hernia Repair, Orthopedic Surgery, Tonsillectomy Additional Past Surgical History / Comment(s): SKIN CA REMOVED, heart cath with one stent 08/20/2022, loop recorder Past Anesthesia/Blood Transfusion Reactions: No Reported Reaction Date of Last Stent Placement:: 08/20/22 Past Psychological History: No Psychological Hx Reported Smoking Status: Never smoker Past Alcohol Use History: Occasional Additional Past Alcohol Use History / Comment(s): drinks 2-3 times a week 1-2 rum mixed drink Past Drug Use History: None Reported - Past Family History Mother Family Medical History: No Reported History Medications and Allergies Home Medications Medication Instructions Recorded Confirmed Type Vitamin B Complex 1 cap PO DAILY 05/12/22 07/22/24 History Apixaban [Eliquis] 5 mg PO BID #60 tab 05/14/22 07/22/24 Rx Cholecalciferol [Vitamin D3 (25 25 mcg PO DAILY 08/17/22 07/22/24 History Mcg = 1000 Iu)] Atorvastatin [Lipitor] 40 mg PO HS 10/24/23 07/22/24 History Calcium/Magnesium/Zinc 1 tab PO DAILY 10/24/23 07/22/24 History Levothyroxine Sodium [Synthroid] 50 mcg PO AC-BRKFST 10/24/23 07/22/24 History Multivit-Mins/Iron/Folic/Lycop 1 tab PO DAILY 10/24/23 07/22/24 History [Centrum Men's Tablet] Pantoprazole [Protonix] 40 mg PO DAILY 10/24/23 07/22/24 History Metoprolol Succinate (ER) [Toprol 25 mg PO DAILY 07/22/24 07/22/24 History XL] Allergies Allergy/AdvReac Type Severity Reaction Status Date / Time No Known Allergies Allergy Verified 07/22/24 11:38 Physical Exam Vitals: Vital Signs Temp Pulse Pulse Pulse Pulse Pulse Resp 07/22/24 07:30 97.5 F L 54 L 16 07/22/24 05:55 97.7 F 53 L 18 07/22/24 04:48 52 L 16 07/22/24 00:30 54 L 18 07/21/24 23:32 59 L 66 56 L 16 07/21/24 23:20 55 L 18 07/21/24 22:25 97.2 F L 56 L 18 BP BP BP BP BP Pulse Ox 07/22/24 07:30 160/87 100 07/22/24 05:55 144/91 99 07/22/24 04:48 118/83 95 07/22/24 00:30 143/92 99 07/21/24 23:32 130/84 128/95 123/84 100 07/21/24 23:20 129/86 95 07/21/24 22:25 146/90 100 Intake and Output 07/21/24 07/22/24 07/22/24 22:59 06:59 14:59 Intake Total 118 Balance 118 Intake: Oral 118 Other: # Voids 1 Weight 77.111 kg 77.111 kg Results CBC & Chem 7: 07/21/24 23:03 07/21/24 23:03 Labs: Abnormal Lab Results - Last 24 Hours (Table) 07/21/24 07/21/24 Range/Units 23:03 23:03 RBC 3.92 L (4.40-5.60) 10*6/uL Hgb 11.8 L (13.0-17.0) g/dL Hct 34.7 L (39.6-50.0) % Plt Count 130 L (140-440) 10*3/uL BUN 23 H (9-20) mg/dL Creatinine 1.30 H (0.66-1.25) mg/dL Glucose 151 H (74-99) mg/dL Total Bilirubin 1.7 H (0.2-1.3) mg/dL ALT 60 H (4-49) U/L Thrombosis Risk Factor Assmnt - Choose All That Apply Any of the Below Risk Factors Present?: No Other Risk Factors: Yes Each Risk Factor Represents 2 Points: Age 61-74 years Other congenital or acquired thrombophilia - If yes, enter type in comment: No Thrombosis Risk Factor Assessment Total Risk Factor Score: 2 Thrombosis Risk Factor Assessment Level: Low Risk
--- NOTE | 2024-07-22 13:17 | P.DS ---
Providers Date of admission: 07/22/24 04:14 Expected date of discharge: 07/22/24 Attending physician: Pro Perry Consults: 07/22/24 04:13 Consult Physician Urgent Consulting Provider: [facility] Consult Reason/Comments: syncope Do you want consulting provider notified?: Yes, Notify in am Primary care physician: Adryan Gardiner [facility] Course: Discharge diagnoses: Syncopelikely vasovagal, with alcohol intake contributing factor Paroxysmal atrial fibrillation Coronary artery disease with PCI of ramus intermedius 08/20/2022 Hypertension Hyperlipidemia Mild dementia Plan: Continue patient's home medication, discontinue Plavix per cardiology. Continue Eliquis, beta-corrine. Monitored with serial EKG and troponin Loop recorder interrogation showed episode of atrial fibrillation-- Echocardiogram--unremarkable with EF 55 to 60%, RSVP 33, mild MR and TR, no pericardial effusion. Okay to discharge per cardiology and outpatient follow-up, discontinue Plavix. Hospital course: 73-year-old male patient with past medical significant for coronary artery disease status post PCI, paroxysmal atrial fibrillation on Eliquis, history of syncope with loop recorder in place, hypertension, hyperlipidemia, mild dementia who presented to ER with a complaint of syncope. Patient recently completed 3 days of a road trip with his and returned 1 day before presenting to ED, patient had dinner and had 3 g and Cokes. Patient was sitting in chair and started to have sweating while standing then sat down, patient briefly passed out. EMS was called and patient blood pressure and pulse ox was found to be low. Patient on and off remember passing out, and denied tongue bite, loss of bowel or bladder control or body stiffness of jerky movements of the extremities. EKG showed sinus bradycardia with first-degree AV block, right bundle block from, CTA chest was negative for acute process. WBC 6.2, hemoglobin 11.8 platelet 130. INR 1.0. BMP was unremarkable except BU N 23, creatinine 1.30. Troponin negative x 3. Patient was admitted to hospital for further evaluation and management. Monitored with serial troponin and EKGs which remained unremarkable. Cardiology consulted, patient had echocardiogram done which showed EF 55 to 60%, unremarkable. Loop interrogation done which showed episode of atrial fibrillation. Patient remained asymptomatic. Okay to discharge per cardiology and outpatient follow-up. Plavix discontinued at discharge per cardiology recommendations, other home medications resumed at discharge. Please refer to medical assessment for further details. Follow-up with PCP in 1 week Follow-up with cardiology as outpatient. PHYSICAL EXAMINATION: GENERAL: The patient is A&O x3, NAD HEENT: EOMI, Sclerae anicteric, Moist Mucous membranes Neck: Supple, Non tender, No JVD PULMONARY: Equal breath souds B/L, No wheezing, No crackles. CARDIOVASCULAR: S1, S2 present. No murmurs, rubs, or gallops. ABDOMEN: Soft, nontender, nondistended, normoactive bowel sounds. No guarding or rebound tenderness. MUSCULOSKELETAL: No edema, No cyanosis. No clubbing. Normal ROM. Intact peripheral pulses. NEUROLOGICAL: CN 2-12 grossly intact. No FND SKIN: No rashes. Dictation was produced using [employer] dictation software. please excuse any grammatical, word or spelling errors. Patient Condition at Discharge: Stable Plan - Discharge Summary New Discharge Prescriptions: Continue Cholecalciferol [Vitamin D3 (25 Mcg = 1000 Iu)] 25 mcg PO DAILY Levothyroxine Sodium [Synthroid] 50 mcg PO AC-BRKFST Metoprolol Succinate (ER) [Toprol XL] 25 mg PO DAILY Vitamin B Complex 1 cap PO DAILY Apixaban [Eliquis] 5 mg PO BID #60 tab Multivit-Mins/Iron/Folic/Lycop [Centrum Men's Tablet] 1 tab PO DAILY Atorvastatin [Lipitor] 40 mg PO HS Pantoprazole [Protonix] 40 mg PO DAILY Calcium/Magnesium/Zinc 1 tab PO DAILY Discontinued Clopidogrel [Plavix] 75 mg PO DAILY Discharge Medication List Vitamin B Complex 1 cap PO DAILY 05/12/22 [History] Apixaban [Eliquis] 5 mg PO BID #60 tab 05/14/22 [Rx] Cholecalciferol [Vitamin D3 (25 Mcg = 1000 Iu)] 25 mcg PO DAILY 08/17/22 [History] Atorvastatin [Lipitor] 40 mg PO HS 10/24/23 [History] Calcium/Magnesium/Zinc 1 tab PO DAILY 10/24/23 [History] Levothyroxine Sodium [Synthroid] 50 mcg PO AC-BRKFST 10/24/23 [History] Multivit-Mins/Iron/Folic/Lycop [Centrum Men's Tablet] 1 tab PO DAILY 10/24/23 [History] Pantoprazole [Protonix] 40 mg PO DAILY 10/24/23 [History] Metoprolol Succinate (ER) [Toprol XL] 25 mg PO DAILY 07/22/24 [History] Follow up Appointment(s)/Referral(s): Dandy Cheek MD [Medical Doctor] - 1 Week None,Stated [REFERRING] - 1-2 days Discharge Disposition: HOME SELF-CARE
[2024-07-22] MEDS ORDERED: ATORVASTATIN 40 MG TAB PO SCH (21:00)
== END 2024-07-22 14:12 | disposition home or self-care (01) ==
LOC: EC 22:19 → 6NMEDSUR 07-22 04:14
PROVIDERS: ADMIT Hospitalist; ATTEND Hospitalist
DX: R55 Syncope and collapse (principal); I48.0 Paroxysmal atrial fibrillation; I25.10 Atherosclerotic heart disease of native coronary artery without angina pectoris; I10 Essential (primary) hypertension; E78.5 Hyperlipidemia, unspecified; F03.A0 Unspecified dementia, mild, without behavioral disturbance, psychotic disturbance, mood disturbance, and anxiety; E07.9 Disorder of thyroid, unspecified; Z79.890 Hormone replacement therapy; Z79.899 Other long term (current) drug therapy; Z85.828 Personal history of other malignant neoplasm of skin; Z95.5 Presence of coronary angioplasty implant and graft; Z79.01 Long term (current) use of anticoagulants; Z79.02 Long term (current) use of antithrombotics/antiplatelets
CPT/HCPCS: 99285; 36415 ×2; 93005; 93306; 80053; 83735; 84484 ×2; 85025; 85610; 85730; 71275; G0378; Q9967

== ENCOUNTER → 2024-09-22 | Outpatient (CLI) | payer MEDICARE ==
[2024-09-22 16:02] LABS: ALT 95 U/L (10-49); AST 67 U/L (14-35)
== END | disposition home or self-care (01) ==
LOC: LABWHC1 09:40
PROVIDERS: ATTEND Family Medicine
DX: R79.89 Other specified abnormal findings of blood chemistry (principal)
CPT/HCPCS: 36415; 84450; 84460